=== PATIENT | female | born 1955 | race African-American/Black ===

== ENCOUNTER 2019-07-20 00:16 | Day surgery (SDC) | payer OTHER, SELFPAY ==
[2019-07-16 14:06] VITALS: BMI 33.1
[2019-07-20 08:38] VITALS: BP 155/61; PULSE 69; RESP 18; TEMP 36.1; O2SAT 98; BMI 34.0
--- NOTE | 2019-07-20 08:58 | WPDGICN ---
Assessment and Plan Additional Plan This is a 63-year-old black female patient seen in evaluation at the request of . Patient presents for colonoscopy patient recently found to have positive cologuard test. She reports that her current weight appetite bowel movements are normal. She denies abdominal pain. She denies blood in her stools. Her bowel habits are regular. She reports that her sister had colon polyps. Current medications include only 1 baby aspirin a day She has allergies to morphine penicillin and sulfa appear Physical exam reveals her to be alert. Vital signs stable. HEENT exam unremarkable. Lungs are clear to auscultation and percussion. Heart is without murmur or extra sounds. Abdominal exam bowel sounds are present soft nontender with no organomegaly Impression 1. Neoplasia screening. Advised because of age and because of positive cologuard test. 2. Positive colguard test. 3. Family history of colon polyps in her sister. Plan is for screening colonoscopy. This report follow separately. GI Consult Note Consult date/time: 07/20/19 08:58 HPI: Khloe Metzger is a 63 year old female [facility] Past Medical History Medical History (Updated 07/20/19 @ 09:01 by Arturo Rodriguez MD) Breast cancer Ex-smoker Obesity Social History Social History Gender identity (if verbalized by the patient): Female Meds Home Medications and Allergies Home Medications Medication Instructions Recorded Confirmed Type aspirin [Aspir-81] 81 mg PO DAILY 07/16/19 07/16/19 History Allergies Allergy/AdvReac Type Severity Reaction Status Date / Time morphine Allergy Unknown HALLUCINATI Unverified 07/20/19 08:41 ONS Penicillins Allergy Unknown Hives Unverified 07/20/19 08:41 Sulfa (Sulfonamide Allergy Unknown HIVES Unverified 07/20/19 08:41 Antibiotics) Vital Signs Vital Signs - 24 hr 07/20/19 08:38 Temperature 36.1 C L Pulse Rate 69 Respiratory Rate 18 Blood Pressure 155/61 H Pulse Oximetry 98
[2019-07-20] MEDS: LACTATED RINGERS 1,000 ML 150 ML IV CONT (09:01)
--- NOTE | 2019-07-20 09:01 | P.PNAN_ITS ---
Anes - Initial Pre Proc Eval Procedure: Operation Date: 07/20/19 09:30 Proposed Procedures p Colonoscopy - Johny Bermudez MD Date/Time: 07/20/19 09:01 Surgeon: Johny Bermudez MD Pre Op Diagnosis: positive cologuard Patient Data Age: 63 Gender: F Height: 5 ft 7 in Weight: 98.5 kg Last Vital Signs Temp 36.1 C L 07/20/19 08:38 Pulse 69 07/20/19 08:38 Resp 18 07/20/19 08:38 BP 155/61 H 07/20/19 08:38 Pulse Ox 98 07/20/19 08:38 Allergies Allergy/AdvReac Type Severity Reaction Status Date / Time morphine Allergy Unknown HALLUCINATI Unverified 07/20/19 08:41 ONS Penicillins Allergy Unknown Hives Unverified 07/20/19 08:41 Sulfa (Sulfonamide Allergy Unknown HIVES Unverified 07/20/19 08:41 Antibiotics) Home Medications Medication Instructions Recorded Confirmed Type aspirin [Aspir-81] 81 mg PO DAILY 07/16/19 07/16/19 History Patient hx anesthesia problems: none Family hx anesthesia problems: none [facility] Past Medical History Medical History (Updated 07/20/19 @ 09:01 by Arturo Rodriguez MD) Breast cancer Ex-smoker Obesity Social History Social History Gender identity (if verbalized by the patient): Female Anes - Eval Final PreProcedure Day of Procedure 07/20/19 09:01 Patient weight: obese Heart: regular rate and rhythm Lungs: clear to auscultation Airway: Mallampati scale class III and other (dentures) Neurological: alert and oriented Last oral intake: >/= 8 hours ASA classification: III Emergent: no Anesthetic plan: proceed Anesthesia type and monitoring: general GIVS and standard monitoring Informed Consent: The patient's anesthetic plan and its attendant risks and benefits were discussed with the patient/family/POA. Questions were solicited and answers provided to the satisfaction of the patient/family/POA.
[2019-07-20 10:00] VITALS: BP 117/54; PULSE 71; RESP 17; O2SAT 95
[2019-07-20 10:10] VITALS: BP 121/53; PULSE 67; RESP 15; O2SAT 97
[2019-07-20 10:20] VITALS: BP 109/67; PULSE 67; RESP 22; O2SAT 100
== END 2019-07-20 10:36 | disposition home or self-care (01) ==
PROVIDERS: PCP Family Medicine; Visit Provider Internal Medicine Gastroenterology
PROC: 0DJD8ZZ Inspection of Lower Intestinal Tract, Via Natural or Artificial Opening Endoscopic (ICD-10-PCS; CPT 45378; principal; 2019-07-20 09:30)
DX: Z12.11 Encounter for screening for malignant neoplasm of colon (principal); K57.30 Diverticulosis of large intestine without perforation or abscess without bleeding; K64.8 Other hemorrhoids; R19.5 Other fecal abnormalities; Z83.71 Family history of colonic polyps; E66.9 Obesity, unspecified; Z68.34 Body mass index [BMI] 34.0-34.9, adult; Z79.82 Long term (current) use of aspirin; Z85.3 Personal history of malignant neoplasm of breast; Z87.891 Personal history of nicotine dependence; Z88.0 Allergy status to penicillin; Z88.2 Allergy status to sulfonamides; Z88.5 Allergy status to narcotic agent
CPT/HCPCS: 45378; J2704; J7120

== ENCOUNTER 2019-09-03 20:11 | Emergency (ER) | payer OTHER, SELFPAY ==
[2019-09-03 20:15] VITALS: BP 212/75; PULSE 71; RESP 18; TEMP 36.7; O2SAT 99
[2019-09-03 20:40] VITALS: BP 180/86; PULSE 68; RESP 19; O2SAT 100
--- NOTE | 2019-09-03 20:49 | ED.ALLEREA ---
HPI - Allergic Reaction General Chief complaint: Allergic Reaction Stated complaint: allergic rxn Time Seen by Provider: 09/03/19 20:37 Source: patient and family Mode of arrival: ambulatory Limitations: no limitations History of Present Illness MD complaint: allergic reaction Onset (ago): hour(s) Exposure: other Known history of allergy to: known allergy to morphine and penicillin and sulfa. Today she had a Bit of Honey candy and she thinks it might be that. Her tongue was more swollen at home. She took benadryl 25mg at home. She has not had allergy testing before. She works at home care, and is still working. She denies taking any lisinopril, ibuprofen, or naproxen. Symptoms: tongue swelling Severity: moderate Treatment prior to arrival: benadryl Previous Allergic Reaction History: other Related Data Home Medications Medication Instructions Recorded Confirmed aspirin [Aspir-81] 81 mg PO DAILY 07/16/19 07/16/19 Allergies Allergy/AdvReac Type Severity Reaction Status Date / Time morphine Allergy Unknown HALLUCINATI Unverified 07/20/19 08:41 ONS Penicillins Allergy Unknown Hives Unverified 07/20/19 08:41 Sulfa (Sulfonamide Allergy Unknown HIVES Unverified 07/20/19 08:41 Antibiotics) Review of Systems Review of Systems: All systems reviewed & are unremarkable except as noted in HPI and below Constitutional: Constitutional: Reports no additional constitutional complaints Eyes: Eyes: Reports no additional eye complaints ENT: Denies dysphagia Cardiovascular: Cardiovascular: Reports no additional cardiovascular complaints Respiratory: Respiratory: Reports no additional respiratory complaints Gastrointestinal: Gastrointestinal: Reports no additional gastrointestinal complaints [facility] Past Medical History Medical History (Updated 09/03/19 @ 22:10 by Andree Verduzco MD) Breast cancer Ex-smoker Obesity Surgical History Surgical History (Updated 09/03/19 @ 22:22 by Andree Verduzco MD) History of lumpectomy Social History Social History (Updated 09/03/19 @ 22:22 by Andree Verduzco MD) Smoking status: Never smoker Alcohol intake: never Substance use: never Gender identity (if verbalized by the patient): Female Exam Const: General: healthy appearing, no acute distress and alert Nutritional Appearance: well nourished and obese Orientation/consciousness: patient oriented x3 HENMT: Face and sinus: normal facial exam Mouth: Yes moist mucous membranes Other: the tongue is moderately swollen,mostly in the front. Eyes: Conjunctivae: conjunctivae normal Pupils: Equal, round and reactive pupils present EOM: EOMs intact bilaterally Neck: Neck: normal visual inspection and no lymphadenopathy Chest: Chest palpation & inspection: normal inspection of the chest Resp: Effort & Inspection: normal respiratory effort Auscultation: clear to auscultation bilaterally Cardio: Rate: regular rate Rhythm: regular rhythm GI: GI Palp: Yes Soft to palpation Skin: General skin exam: normal color Rashes: no rashes Neuro: General: patient oriented x3, no focal motor deficits and CN's II-XI intact bilaterally Speech: normal speech Extrem: General: normal to inspection Psych: Appearance: well kempt Affect: normal affect Attitude: cooperative Course Reevaluation(s) Reevaluation #1: She says that her tongue is better and she wants to go home and eat. Date: 09/03/19 Time: 22:24 Vital Signs Vital signs: Vital Signs Temperature 98.1 F 09/03/19 20:15 Pulse Rate 71 09/03/19 20:15 Respiratory Rate 18 09/03/19 20:15 Blood Pressure 212/75 H 09/03/19 20:15 Pulse Oximetry 99 09/03/19 20:15 Temperature 98.1 F 09/03/19 20:15 Pulse Rate 68 09/03/19 20:40 Respiratory Rate 19 09/03/19 20:40 Blood Pressure 180/86 H 09/03/19 20:40 Pulse Oximetry 100 09/03/19 20:40 Discharge Plan Discharge Clinical Impression: Angioedema Qualifiers: Encounter type: initial
[2019-09-03] MEDS: FAMOTIDINE 20 MG/2 ML VIAL IV PUSH (21:50)
[2019-09-03] MEDS: methylPREDNISolone SOD SUCC 125 MG VIAL IV PUSH (21:50)
[2019-09-03 22:00] VITALS: BP 176/73; PULSE 71; RESP 20; O2SAT 98
== END 2019-09-03 22:00 | disposition home or self-care (01) ==
PROVIDERS: Emergency Provider Emergency Medicine; PCP Family Medicine
DX: T78.3XXA Angioneurotic edema, initial encounter (principal); Z85.3 Personal history of malignant neoplasm of breast; E66.9 Obesity, unspecified
CPT/HCPCS: 96374; 96375; 99284; J1200; J2930

== ENCOUNTER 2020-03-25 13:26 | Outpatient (CLI) | payer OTHER, SELFPAY ==
--- NOTE | ~2020-03-25 | MM_ITS ---
EXAMINATION: MM diagnostic ojhn BI w esperanza HISTORY: Follow-up right breast calcifications and architectural distortion. TECHNIQUE: Additional 3-D tomosynthesis images of the breasts were performed and synthetic 2-D images were generated. CAD analysis was submitted and interpreted. COMPARISON: Comparison to multiple prior studies sequentially, with oldest reviewed study dated 04/22. BREAST PARENCHYMAL COMPOSITION: Breast composed of scattered areas of fibroglandular density. FINDINGS: The left breast is stable without evidence for malignancy. There are coarse amorphous regio nal calcifications in the upper outer quadrant of the right breast which appear to have increased sli ghtly in number and density compared with prior examinations. Given the history of previous malignanc y, stereotactic biopsy is recommended. IMPRESSION: 1. Increase number and density of amorphous regional calcifications upper outer quadrant of the right breast. 2. Stereotactic right breast biopsy recommended. BI-RADS category 4, suspicious findings. Reviewed, dictated and finalized at location A. [employer]
== END 2020-03-25 13:27 | disposition home or self-care (01) ==
PROVIDERS: PCP Family Medicine; Visit Provider Family Medicine
DX: R92.8 Other abnormal and inconclusive findings on diagnostic imaging of breast (principal)
CPT/HCPCS: 77062; 77066; G0279

== ENCOUNTER 2020-11-28 13:26 | Outpatient (CLI) | payer OTHER, SELFPAY ==
--- NOTE | ~2020-11-28 | MM_ITS ---
EXAMINATION: MM diagnostic john RT w esperanza HISTORY: Six-month follow-up for probably benign right breast calcifications TECHNIQUE: Craniocaudal, mediolateral, and mediolateral oblique 3-D tomosynthesis images of the right breast were performed and synthetic 2-D images were generated. Magnification views are also obtained . CAD analysis was submitted and interpreted. COMPARISON: 03/25/2020,03/09/2019, 06/08/2018, 05/18/2018 BREAST PARENCHYMAL COMPOSITION: The breasts are heterogeneously dense, which may obscure small masses . FINDINGS: There are changes of lumpectomy in the right breast including architectural distortion, fat necrosis, and skin retraction. There are stable coarse heterogeneous calcifications in the posterior third of the outer breast at the 9:00 location 7 cm from the nipple which have been morphology consi stent with fat necrosis and postsurgical change. IMPRESSION: 1. Postsurgical changes without mammographic evidence of malignancy. 2. Recommend routine screening mammography, due in six months. BI-RADS Category 2: Benign finding(s). Reviewed, dictated and finalized at location A.
== END 2020-11-28 13:27 | disposition home or self-care (01) ==
LOC: ANHIMG 13:27
PROVIDERS: PCP Family Medicine; Visit Provider Family Medicine
DX: R92.8 Other abnormal and inconclusive findings on diagnostic imaging of breast (principal)
CPT/HCPCS: 77061; 77065; G0279

== ENCOUNTER 2021-02-02 11:13 | Outpatient (CLI) | payer OTHER, SELFPAY ==
--- NOTE | ~2021-02-02 | MMUS_ITS ---
EXAMINATION: MM diagnostic john BI w esperanza, US breast RT complete HISTORY: Follow-up right breast asymmetry TECHNIQUE: Additional 3-D tomosynthesis images of the right breast were performed and synthetic 2-D i mages were generated. CAD analysis was submitted and interpreted. High resolution right breast ultras ound was performed. COMPARISON: Comparison to multiple prior studies sequentially, with oldest reviewed study dated 04/23. BREAST PARENCHYMAL COMPOSITION: Breast composed of scattered areas of fibroglandular density FINDINGS: MAMMOGRAPHIC FINDINGS: The left breast is stable without evidence for malignancy. There is developing asymmetry and architec tural distortion centered in the mid outer aspect of the right breast. Pleomorphic right breast calci fications are not significantly changed dating back to 05/18/2018 ULTRASOUND: Right breast ultrasound: At 12:00, 2 cm from the nipple, there is an irregular hypoechoic mass with posterior shadowing measur ing 12 x 11 x 6 mm. At 11:00 near the nipple is an irregular shaped hypoechoic mass measuring 1.6 x 1 .6 x 0.8 cm. No significant internal vascularity. Mixed posterior attenuation. Parallel orientation. At 8:00, 6 cm from the nipple, there is an irregular shaped slightly hypoechoic heterogeneous mass me asuring 1.5 x 1.5 x 0.8 cm without internal vascularity or significant posterior features. Also at 8: 00, 6 cm from the nipple there is a complex partially cystic mass measuring 1.7 x 1.0 x 1.6 cm. IMPRESSION: 1. Multiple irregular complex masses of the right breast located at 8, 11 and 12:00 positions. 2. Ultrasound-guided breast biopsy of 4 discrete right breast masses recommended. BI-RADS category 4, suspicious findings. Reviewed, dictated and finalized at location A. IMPRESSION: 1. Multiple irregular complex masses of the right breast located at 8, 11 and 1 2:00 positions. 2. Ultrasound-guided breast biopsy of 4 discrete right breast masses recommende d. BI-RADS category 4, suspicious findings.
== END 2021-02-02 11:14 | disposition home or self-care (01) ==
LOC: ANHIMG 11:14
PROVIDERS: PCP Family Medicine; Visit Provider Family Medicine
DX: N63.15 Unspecified lump in the right breast, overlapping quadrants (principal)
CPT/HCPCS: 76641; 77062; 77066; G0279

== ENCOUNTER 2021-03-09 09:29 | Outpatient (CLI) | payer OTHER, SELFPAY ==
--- NOTE | ~2021-03-09 | MMUS_ITS ---
EXAMINATION: US GUIDED NEEDLE BIOPSY DATE: 03/09/2021 11:49 CDT INDICATION: 12:00 right breast hypoechoic lesion TECHNIQUE AND FINDINGS: Initial imaging reveals a likely benign complex parallel area at 8:00 6 cm from the nipple, measuring up to almost 1 centimeter maximal depth and 3.5 cm width, with through transmission posterior enhanc ement, likely benign, likely postoperative seroma/hematoma. Six-month follow-up ultrasound examinatio n is recommended. No reproducible suspicious mass is noted at 11:00 position on the current examination. Ultrasound guided biopsy was performed at 12:00 2 cm from the nipple at an area of hypoechogenicity a nd some posterior shadowing and adjacent calcification: The risks and potential benefits of the procedure were discussed with the patient, and written inform ed consent was obtained. Timeout procedure was performed. After sterile preparation of the right cristine st, 1% lidocaine was utilized for local anesthesia. A 14G spring-loaded biopsy gun needle was advanced to the edge of the region of interest from a media l approach utilizing sonographic guidance. A total of 4 tissue core samples were obtained through th e lesion. An Inrad tissue marker clip was then placed at the biopsy site. Hemostasis was achieved. A sterile bandage was applied. The patient tolerated procedure well and there was no evidence of immediate complication. The patien t was given verbal instructions prior to departing from the department. A two view mammogram was perf ormed to document tissue marker clip placement. The tissue samples were submitted to surgical patholo gy for histologic analysis. IMPRESSION: 1. Successful ultrasound guided biopsy of 12:00 breast mass with biopsy marker placement. Please ref er to pathology report for histologic analysis. BI-RADS Category 3: Probably benign: Recommend 6 month follow-up right breast ultrasound examination Reviewed, dictated and finalized at Location A. Reviewed, dictated and finalized at location A. IMPRESSION: 1. Successful ultrasound guided biopsy of 12:00 breast mass with biopsy marker placement. Please refer to pathology report for histologic analysis. BI-RADS Category 3: Probably benign: Recommend 6 month follow-up right breast u ltrasound examination
== END 2021-03-09 09:30 | disposition home or self-care (01) ==
PROVIDERS: PCP Family Medicine; Visit Provider Family Medicine
DX: R92.8 Other abnormal and inconclusive findings on diagnostic imaging of breast (principal)
CPT/HCPCS: 19083; 88305; A4648

== ENCOUNTER 2021-11-16 13:11 | Outpatient (CLI) | payer OTHER, SELFPAY ==
--- NOTE | ~2021-11-16 | MMUS_ITS ---
EXAMINATION: MM diagnostic john RT w esperanza, US breast RT limited HISTORY: Status post right partial mastectomy and breast reduction surgery. TECHNIQUE: Additional 3-D tomosynthesis images of the right breast were performed and synthetic 2-D i mages were generated. CAD analysis was submitted and interpreted. High resolution Limited right breas t ultrasound was performed. COMPARISON: Comparison to multiple prior studies sequentially, with oldest reviewed study dated 02/20. BREAST PARENCHYMAL COMPOSITION: The breasts are heterogenously dense, which may obscure small masses. FINDINGS: MAMMOGRAPHIC FINDINGS: Stable architectural distortion centered in the upper outer quadrant of the right breast. No signific ant change to clustered indeterminate calcifications of the right breast. There is a new focal asymme try medially in the right breast on CC view only with irregular margins. ULTRASOUND: Limited right breast ultrasound: There are complex masses in the right breast at 8:00, including a ma ss at 8:00, 6 cm from the nipple in the area of palpable concern measuring 1.8 x 1.4 x 1.7 cm which a ppears partially cystic and partially solid with mixed posterior attenuation and no internal vascular ity. Also at 8:00, 6 cm from the nipple in the area of palpable concern is a complex heterogeneous hy poechoic mass with irregular margins. These likely represent areas of fat necrosis without interval c hange from prior examination. Ultrasound examination did not include the area of abnormality in the m edial aspect of the right breast. IMPRESSION: 1. Stable likely benign areas of fat necrosis in the right breast described above. New area of asymmetry medially in the right breast with irregular margins. 2. Ultrasound examination of the medial aspect of the right breast recommended. BI-RADS Category 0: Incomplete: Needs additional imaging evaluation. Reviewed, dictated and finalized at location A. IMPRESSION: 1. Stable likely benign areas of fat necrosis in the right breast described abo ve. New area of asymmetry medially in the right breast with irregular margins. 2. Ultrasound examination of the medial aspect of the right breast recommended. BI-RADS Category 0: Incomplete: Needs additional imaging evaluation.
--- NOTE | ~2021-11-16 | US_ITS ---
Additional imaging US 11/17/2021 10:19 Indication: Focal asymmetry seen in the upper inner quadrant of the right breast anteriorly on mammog wallace. Procedure: High-resolution Limited ultrasound of the right breast Comparison: Comparison to multiple prior studies sequentially, with oldest reviewed study dated 01/2021. Findings: At 2:00 there is scarring from previous surgery with heterogeneous subcutaneous edema. No d iscrete mass or cyst is identified. These are likely benign postsurgical changes. Impression: 1: Probable benign postsurgical changes of the right breast at 2:00 in the area of previous surgical scar. BI-RADS CATEGORY 3-PROBABLY BENIGN FINDING RECOMMENDATION: Six-month follow-up diagnostic right mammogram with possible ultrasound recommended. Reviewed, dictated and finalized at location A. Impression: 1: Probable benign postsurgical changes of the right breast at 2:00 in the area of previous surgical scar. BI-RADS CATEGORY 3-PROBABLY BENIGN FINDING RECOMMENDATION: Six-month follow-up diagnostic right mammogram with possible ul trasound recommended.
== END 2021-11-16 13:12 | disposition home or self-care (01) ==
PROVIDERS: PCP Family Medicine; Visit Provider Family Medicine
DX: N63.10 Unspecified lump in the right breast, unspecified quadrant (principal); R92.8 Other abnormal and inconclusive findings on diagnostic imaging of breast
CPT/HCPCS: 76642; 77061; 77065; G0279

== ENCOUNTER 2022-09-15 12:21 | Outpatient (CLI) | payer BC, SELFPAY ==
--- NOTE | ~2022-09-15 | MMUS_ITS ---
EXAMINATION: MM diagnostic john BI w esperanza, US breast RT complete HISTORY: History of right breast cancer TECHNIQUE: Bilateral full-field ML, MLO and CC and spot right MLO, MLO and CC 3-D tomosynthesis image s were performed and synthetic 2-D images were generated. CAD analysis was submitted and interpreted. High resolution complete right breast ultrasound was performed. COMPARISON: Serial mammographic and sonographic examinations dating back to 05/18/2018 BREAST PARENCHYMAL COMPOSITION: The breasts are heterogeneously dense, which may obscure small masses . FINDINGS: MAMMOGRAPHIC FINDINGS: Right breast: Stable right partial mastectomy postoperative changes and probable scarring, with benig n calcifications likely due in large part due to fat necrosis. There is a biopsy marker. No significant new or developing density or other significant change is noted since 11/16/2021. Left breast: No suspicious mass, architectural distortion, malignant calcification, skin thickening o r retraction or significant new or developing density. There are a few stable benign-appearing microc alcifications. ULTRASOUND: Complete right breast ultrasound examination reveals some shadowing from scarring at 12:00 near the n ipple and chronic complex approximately 11 x 19 mm lesion without internal vascularity, with some thr ough transmission 8 8:00 6 cm from the nipple. No interval suspicious mass or shadowing is detected. IMPRESSION: 1. Probably benign findings. Status post right partial mastectomy for breast cancer, with stable appe arance since 11/16/2021 2. 6 month follow-up diagnostic right mammogram and right breast ultrasound examination are recommend ed BI-RADS category 3, probably benign findings. Reviewed, dictated and finalized at location A. IMPRESSION: 1. Probably benign findings. Status post right partial mastectomy for breast ca ncer, with stable appearance since 11/16/2021 2. 6 month follow-up diagnostic right mammogram and right breast ultrasound exa mination are recommended BI-RADS category 3, probably benign findings.
== END 2022-09-15 12:22 | disposition home or self-care (01) ==
LOC: ANHIMG 12:23
PROVIDERS: PCP Family Medicine; Visit Provider Family Medicine
DX: R92.8 Other abnormal and inconclusive findings on diagnostic imaging of breast (principal); Z85.3 Personal history of malignant neoplasm of breast; Z90.11 Acquired absence of right breast and nipple
CPT/HCPCS: 76641; 77062; 77066; G0279

== ENCOUNTER 2023-10-07 10:15 | Outpatient (CLI) | payer MEDICARE, SELFPAY ==
--- NOTE | ~2023-10-07 | DEXA_ITS ---
Bone Density Report Name: KAY MONIQUE Age: 67 Sex: Female Ethnicity: White Date of : 1955 Indication: postmenopausal; screening for osteoporosis; height loss; cancer; Referring Provider: DESTIN, MIHAI Uribe Study: Bone densitometry was performed. Exam Date: October 07, 2023 Accession number: [id number] Bone Density: Region BMD T-score Z-score Classification AP Spine(L1-L4) 1.136 0.8 2.6 Normal Femoral Neck (Left) 0.871 0.2 1.8 Normal Total Hip (Left) 1.134 1.6 2.8 Normal Femoral Neck (Right) 0.808 -0.4 1.2 Normal Total Hip (Right) 1.171 1.9 3.2 Normal Total Hip Mean 1.153 1.8 3.0 Normal World Health Organization criteria for BMD impression classify patients as: Normal (T-score at or above -1.0), Osteopenia (T-score between -1.0 and -2.5), or Osteoporosis (T-score at or below -2.5). 10-year Fracture Risk: FRAX not reported because: All T-scores for Spine Total, Hip Total, Femoral Neck at or above -1.0 Clinical Information Provided by Patient: Has the following medical conditions: Cancer Patient maximum height was 67 No regular weight bearing exercise Drinks caffeinated beverages Onset of menses at age 15 Number of children 2 Impression: The patient has normal bone mass. Discussion: BONE DENSITY IS ABOVE THE MINIMUM DESIRABLE LEVEL AT ALL SKELETAL SITES TESTED. This patient?s bone mineral density is above the minimum desirable level (T-score -1.0 or better) at all sites measured. The patient should follow a healthful lifestyle (good nutrition with adequate calcium and vitamin D, and appropriate weight-bearing exercise). Follow-Up: Consider repeating this study in 5 years or sooner if there is some new clinical indication. Reported by: CHEMA on 10/07/2023 10:47:00 AM. Reviewed, dictated and finalized at location AEdgardo [facility]
== END 2023-10-07 10:16 | disposition home or self-care (01) ==
PROVIDERS: PCP Physician Assistant; Visit Provider Physician Assistant
DX: Z78.0 Asymptomatic menopausal state (principal)
CPT/HCPCS: 77080

== ENCOUNTER 2023-10-13 14:28 | Outpatient (CLI) | payer MEDICARE, SELFPAY ==
--- NOTE | ~2023-10-13 | MM_ITS ---
EXAMINATION: MM screening john BI w esperanza HISTORY: Screening TECHNIQUE: Craniocaudal and mediolateral oblique 3-D tomosynthesis images were obtained and synthetic 2-D images were generated. CAD analysis was submitted and interpreted. COMPARISON: Comparison to multiple prior studies sequentially, with oldest reviewed study dated 07/2019. BREAST PARENCHYMAL COMPOSITION: Dense: The breasts are heterogeneously dense, which may obscure small masses FINDINGS: There is no evidence of suspicious mass, calcification, or architectural distortion to sugg est malignancy in either breast. There has been no suspicious interval change. IMPRESSION: 1. No mammographic evidence of malignancy. 2. Recommend routine screening mammography in one year. BI-RADS Category 1: Negative Reviewed, dictated and finalized at location A.
== END 2023-10-13 14:29 | disposition home or self-care (01) ==
PROVIDERS: PCP Physician Assistant; Visit Provider Physician Assistant
DX: Z12.31 Encounter for screening mammogram for malignant neoplasm of breast (principal)
CPT/HCPCS: 77063; 77067

== ENCOUNTER → 2023-11-10 12:52 | Outpatient (REF) | payer MEDICARE, SELFPAY | LOC: ANHLAB 12:52 | PROVIDERS: PCP Physician Assistant; Visit Provider Plastic Surgery | DX: L72.3 Sebaceous cyst (principal) | CPT/HCPCS: 88305 ==

== ENCOUNTER 2024-09-17 12:23 | Outpatient (CLI) | payer MEDICARE, SELFPAY ==
--- NOTE | ~2024-09-17 | MMUS_ITS ---
EXAMINATION: MM diagnostic john BI w esperanza, US breast RT limited HISTORY: Right breast lump, prior right partial mastectomy and chemoradiation. Prior bilateral reduct ion surgery. TECHNIQUE: 3-D tomosynthesis images of the breasts were performed and synthetic 2-D images were gener ated. CAD analysis was submitted and interpreted. High resolution limited right breast ultrasound was performed. COMPARISON: 10/13/2023, 09/15/2022, 11/16/2021 BREAST PARENCHYMAL COMPOSITION:Dense: The breasts are heterogeneously dense, which may obscure small masses. FINDINGS: MAMMOGRAPHIC FINDINGS: Stable extensive architectural distortion in the right breast related to prior surgery as well as nikki motherapy/radiation. There are increasing dystrophic calcifications at the lumpectomy site, but no ov ertly suspicious calcifications are present. Stable parenchymal pattern of the left breast. ULTRASOUND: At the right breast 8:00 position, 4 cm from the nipple, there is a 1.5 x 1.3 x 0.8 cm benign cyst. T here is a somewhat masslike area at this region as well measuring 3.8 x 1.9 x 4.8 cm, thought to repr esent normal fibroglandular tissue overall. IMPRESSION: Findings most compatible benign findings, as above. Somewhat masslike area in the right breast is fe lt to most likely represent normal fibroglandular tissue with mild architectural distortion related t o postoperative change especially given stable mammographic appearance of such a large finding. Six-m onth follow-up ultrasound recommended to reassess. BI-RADS category 3, probably benign findings. Reviewed, dictated and finalized at location M. IMPRESSION: Findings most compatible benign findings, as above. Somewhat masslike area in the right breast is felt to most likely represent normal fibroglandular tissue with mild architectural distortion related to postoperative change especially g iven stable mammographic appearance of such a large finding. Six-month follow-u p ultrasound recommended to reassess. BI-RADS category 3, probably benign findings.
--- OUTSIDE RECORDS SUMMARY | 2024-09-17 14:03 | XMS_ITS | Encounter Summary ---
Author Organization [facility] Address 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 Gender Identity Not on file Sexual Orientation Not on file documented as of this encounter Plan of Treatment Not on file documented as of this encounter Procedures Procedure Name Priority Date/Time Associated Diagnosis Comments MAMMO DIAGNOSTIC UNI RIGHT W OR WO CAD Timed Study 09/11/2008 4:03 PM CDT MRI NEEDLE BIOPSY Timed Study 09/11/2008 3:4 9 PM CDT documented in this encounter Results * MAMMO DIGITAL DIAG UNI RIGHT (09/11/2008 4:03 PM CDT) Anatomical Region Laterality Modality Breast Right Other 09/11/2008 4:03 PM CDT Narrative 09/12/2008 12:29 PM CDT [facility] [address] [place], [place] [address] Admit Date: 09/11/2008 KHLOE METZGER Sex: F Admit Prov: CHUNG VANN II Date: 1955 Primary Care Prov: PCP, NONE CMRN: [id number] Room: [facility] SSN: [id number] IMAGING SERVICES Ordering Prov: CHUNG VANN II Accession Number: [id number] Interpretation RIGHT BREAST MRI GUIDED NEEDLE LOCALIZATION WITH TISSUE MARKER PLACEMENT AND [facility] BREAST FULL FIELD DIGITAL DIAGNOSTIC MAMMOGRAM WITH COMPUTER AIDED DETECTION. 09/11/2008 History: Patient has been diagnosed with right breast cancer. A recent MRI performed at this institution demonstrated a mass in the medial aspect of the right breast. An MRI guided core biopsy has been recommended. Technique: The risks and benefits were discussed of the procedure were discussed at length with the patient. Patient had an opportunity to ask questions, all of which were answered. The patient then gave written informed consent for a right breast MRI guided core biopsy with tissue marker placement. The patient was placed in the prone position on the MRI table. The right breast was placed in grid compression device from the lateral approach. A sagittally acquired breast MRI was performed before and after the intravenous administration of 16 mL of Optimark. Lesion was identified on the scan. This area was then prepped in the usual sterile fashion. Using 1% lidocaine without epinephrine, the area was anesthetized. A trocar was then inserted to the level of the lesion. Axial acquisition MRI scan was obtained and demonstrated confirmation of the trocar in the appropriate position. Twelve 9 gauge vacuum-assisted core biopsies were obtained. Tissue marker clip was placed. An axial acquisition was then performed and demonstrated the biopsy tissue marker clip to be in the appropriate position. Patient tolerated procedure well and there were no immediate complications. The patient was transported to the breast center. A right breast full field digital diagnostic mammogram was performed. This demonstrated the patient's tissue marker clip to be in the appropriate position. A sterile bandage was placed over the incision site. The patient was discharged from the department in stable condition after being given verbal as well as written postprocedure instructions. The specimens were submitted to pathology in formalin for histologic analysis. IMPRESSION: Technically successful right breast MRI-guided core biopsy. Radiologists: Dr. Riddhi Corona and Dr. Patricia Sanchez Assessment BIRADS: Post procedure mammograms for marker placement Recommendation: No recommendation required Dictated by: VALARIE CORONA Electronically signed by: VALARIE CORONA 09/12/2008 12:28 Transcribed: 09/12/2008 10:20 AMK Procedure Note Valarie Corona - 09/12/[address] [place], [place] [address] Admit Date: 09/11/2008 KHLOE METZGER Sex: F Admit Prov: CHUNG VANN II Date: 1955 Primary Care Prov: PCP, NONE CMRN: [id number] Room: [facility] SSN: [id number] IMAGING SERVICES Ordering Prov: CHUNG VANN II Interpretation RIGHT BREAST MRI GUIDED NEEDLE LOCALIZATION WITH TISSUE MARKERPLACEMENT AND RIGH BREAST FULL FIELD DIGITAL DIAGNOSTIC MAMMOGRAM WITH COMPUTERAIDED DETECTION. 09/11/2008 History: Patient has been diagnosed with right breast cancer. Arecent MRI performed at this institution demonstrated a mass in the medialaspect of the right breast. An MRI guided core biopsy has been recommended. Technique: The risks and benefits were discussed of the procedurewere discussed at length with the patient. Patient had an opportunity toask questions, all of which were answered. The patient then gavewritten informed consent for a right breast MRI guided core biopsy withtissue marker placement. The patient was placed in the prone position on the MRI table. Theright breast was placed in grid compression device from the lateralapproach. A sagittally acquired breast MRI was performed before and after the intravenous administration of 16 mL of Optimark. Lesion wasidentified on the scan. This area was then prepped in the usual sterile fashion.Using 1% lidocaine without epinephrine, the area was anesthetized. A trocarwas then inserted to the level of the lesion. Axial acquisition MRI scan was obtained and demonstrated confirmation of the trocar in theappropriate position. Twelve 9 gauge vacuum-assisted core biopsies wereobtained. Tissue marker clip was placed. An axial acquisition was thenperformed and demonstrated the biopsy tissue marker clip to be in the appropriate position. Patient tolerated procedure well and there were noimmediate complications. The patient was transported to the breast center. A right breast fullfield digital diagnostic mammogram was performed. This demonstrated thepatient's tissue marker clip to be in the appropriate position. A sterile bandage was placed over the incision site. The patientwas discharged from the department in stable condition after being givenverbal as well as written postprocedure instructions. The specimens weresubmitted to pathology in formalin for histologic analysis. IMPRESSION: Technically successful right breast MRI-guided core biopsy. Radiologists: Dr. Riddhi Corona and Dr. Patricia Sanchez Assessment BIRADS: Post procedure mammograms for marker placement Recommendation: No recommendation required Dictated by: VALARIE CORONA Electronically signed by: VALARIE CORONA 09/12/2008 12:28 Transcribed: 09/12/2008 10:20 AMK Chung Vann MD MAMMO ORDERABLES Final Result * MRI NEEDLE BIOPSY (09/11/2008 3:49 PM CDT) Anatomical Region Laterality Modality Other 09/11/2008 3:49 PM CDT Narrative 09/13/2008 5:19 PM CDT [facility] [address] [place], [place] [address] Admit Date: 09/11/2008 KHLOE METZGER Sex: F Admit Prov: CHUNG VANN II Date: 1955 Primary Care Prov: PCP, NONE CMRN: [id number] Room: [facility] SSN: [id number] IMAGING SERVICES Ordering Prov: CHUNG VANN II Accession Number: [id number] Addendum Addendum: The pathology from the patient's recent right breast MRI guided core biopsy reveals no pathologic diagnosis. This is benign and discordant. It is recommended the patient have a needle localization at the level of the clip in the medial aspect of the right breast. The patient will be informed of the above findings by the nurse navigator in the breast center. Dictated by: VALARIE CORONA Electronically signed by: VALARIE CORONA 09/13/2008 17:17 Transcribed: 09/13/2008 15:51 AMK Interpretation RIGHT BREAST MRI GUIDED NEEDLE LOCALIZATION WITH TISSUE MARKER PLACEMENT AND RIG BREAST FULL FIELD DIGITAL DIAGNOSTIC MAMMOGRAM WITH COMPUTER AIDED DETECTION. 09/11/2008 History: Patient has been diagnosed with right breast cancer. A recent MRI performed at this institution demonstrated a mass in the medial aspect of the right breast. An MRI guided core biopsy has been recommended. Technique: The risks and benefits were discussed of the procedure were discussed at length with the patient. Patient had an opportunity to ask questions, all of which were answered. The patient then gave written informed consent for a right breast MRI guided core biopsy with tissue marker placement. The patient was placed in the prone position on the MRI table. The right breast was placed in grid compression device from the lateral approach. A sagittally acquired breast MRI was performed before and after the intravenous administration of 16 mL of Optimark. Lesion was identified on the scan. This area was then prepped in the usual sterile fashion. Using 1% lidocaine without epinephrine, the area was anesthetized. A trocar was then inserted to the level of the lesion. Axial acquisition MRI scan was obtained and demonstrated confirmation of the trocar in the appropriate position. Twelve 9 gauge vacuum-assisted core biopsies were obtained. Tissue marker clip was placed. An axial acquisition was then performed and demonstrated the biopsy tissue marker clip to be in the appropriate position. Patient tolerated procedure well and there were no immediate complications. The patient was transported to the breast center. A right breast full field digital diagnostic mammogram was performed. This demonstrated the patient's tissue marker clip to be in the appropriate position. A sterile bandage was placed over the incision site. The patient was discharged from the department in stable condition after being given verbal as well as written postprocedure instructions. The specimens were submitted to pathology in formalin for histologic analysis. IMPRESSION: Technically successful right breast MRI-guided core biopsy. Radiologists: Dr. Riddhi Corona and Dr. Patricia Sanchez Report revised on 09/13/2008 5:17:45 PM by VALARIE CORONA Dictated by: VALARIE CORONA Electronically signed by: VALARIE CORONA 09/12/2008 12:28 Transcribed: 09/12/2008 10:20 AMK Procedure Note Valarie Corona - 09/13/2008 [facility] [address] [place], [place] [address] Admit Date: 09/11/2008 KHLOE METZGER Sex: F Admit Prov: CHUNG VANN II Date: 1955 Primary Care Prov: PCP, NONE CMRN: [id number] [facility]: [id number] IMAGING SERVICES Ordering Prov: GENE CHUNG DUKES Addendum Addendum: The pathology from the patient's recent right breast MRIguided core biopsy reveals no pathologic diagnosis. This is benign anddiscordant. It is recommended the patient have a needle localization at the levelof the clip in the medial aspect of the right breast. The patient willbe informed of the above findings by the nurse navigator in the breastcenter. Dictated by: VALARIE CORONA Electronically signed by: VALARIE CORONA 09/13/2008 17:17 Transcribed: 09/13/2008 15:51 AMK Interpretation RIGHT BREAST MRI GUIDED NEEDLE LOCALIZATION WITH TISSUE MARKERPLACEMENT AND RIG BREAST FULL FIELD DIGITAL DIAGNOSTIC MAMMOGRAM WITH COMPUTERAIDED DETECTION. 09/11/2008 History: Patient has been diagnosed with right breast cancer. Arecent MRI performed at this institution demonstrated a mass in the medialaspect of the right breast. An MRI guided core biopsy has been recommended. Technique: The risks and benefits were discussed of the procedurewere discussed at length with the patient. Patient had an opportunity toask questions, all of which were answered. The patient then gavewritten informed consent for a right breast MRI guided core biopsy withtissue marker placement. The patient was placed in the prone position on the MRI table. Theright breast was placed in grid compression device from the lateralapproach. A sagittally acquired breast MRI was performed before and after the intravenous administration of 16 mL of Optimark. Lesion wasidentified on the scan. This area was then prepped in the usual sterile fashion.Using 1% lidocaine without epinephrine, the area was anesthetized. A trocarwas then inserted to the level of the lesion. Axial acquisition MRI scan was obtained and demonstrated confirmation of the trocar in theappropriate position. Twelve 9 gauge vacuum-assisted core biopsies wereobtained. Tissue marker clip was placed. An axial acquisition was thenperformed and demonstrated the biopsy tissue marker clip to be in the appropriate position. Patient tolerated procedure well and there were noimmediate complications. The patient was transported to the breast center. A right breast fullfield digital diagnostic mammogram was performed. This demonstrated thepatient's tissue marker clip to be in the appropriate position. A sterile bandage was placed over the incision site. The patientwas discharged from the department in stable condition after being givenverbal as well as written postprocedure instructions. The specimens weresubmitted to pathology in formalin for histologic analysis. IMPRESSION: Technically successful right breast MRI-guided core biopsy. Radiologists: Dr. Riddhi Corona and Dr. Patricia Sanchez Report revised on 09/13/2008 5:17:45 PM by VALARIE CORONA Dictated by: VALARIE CORONA Electronically signed by: VALARIE CORONA 09/12/2008 12:28 Transcribed: 09/12/2008 10:20 AMK Chung Vann MD MR ORDERABLES Edited documented in this encounter Visit Diagnoses Diagnosis Malignant neoplasm of breast (female), unspecified site documented in this encounter
--- OUTSIDE RECORDS SUMMARY | 2024-09-17 14:03 | XMS_ITS | Clinical Summary ---
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 Gender Identity Not on file Sexual Orientation Not on file Plan of Treatment Health Maintenance Due Date Last Done Comments DTAP/TDAP/TD VACCINES (1 - Tdap) 1976 COLORECTAL SCREENING 2002 Colorectal Cancer Screening 2002 FIT-DNA Q 3 years 2002 FIT/FOBT Q 1 year 2002 Flex Sig/CT Colonography Q 5 years 2002 PNEUMOCOCCAL VACCINE 50+ YEARS (1 of 1 - PCV) 11/12/19 08 ZOSTER VACCINE (1 of 2) 11/12/2007 BREAST CANCER SCREENING 09/11/2009 09/11/2008 OSTEOPOROSIS SCREENING 2022 INFLUENZA VACCINE (#1) 2023 RSV VACCINE (60+ or ) (1 - 1-dose 75+ series) 2032 Procedures Procedure Name Priority Date/Time Associated Diagnosis Comments MAMMO DIAGNOSTIC UNI RIGHT W OR WO CAD Timed Study 09/11/2008 4:03 PM CDT from Last 3 Months or Most Recently Relevant to Health Maintenance Results * MAMMO DIGITAL DIAG UNI RIGHT (09/11/2008 4:03 PM CDT) Anatomical Region Laterality Modality Breast Right Other 09/11/2008 4:03 PM CDT Narrative 09/12/2008 12:29 PM CDT [facility] [address] [place], [place] [address] Admit Date: 09/11/2008 KHLOE METZGER Sex: F Admit Prov: CHUNG VANN II Date: 1955 Primary Care Prov: PCP, NONE CMRN: [id number] Room: [facility] SSN: [id number] IMAGING SERVICES Ordering Prov: CHUNG VANN II Accession Number: [id number] Interpretation RIGHT BREAST MRI GUIDED NEEDLE LOCALIZATION WITH TISSUE MARKER PLACEMENT AND [facility] BREAST FULL FIELD DIGITAL DIAGNOSTIC MAMMOGRAM WITH [...] AMK Procedure Note Valarie Corona - 09/12/2008 [facility] [address] [place], [place] [address] Admit Date: 09/11/2008 KHLOE METZGER Sex: F Admit Prov: CHUNG VANN II Date: 1955 Primary Care Prov: PCP, NONE CMRN: [id number] Room: [facility] SSN: [id number] IMAGING SERVICES Ordering Prov: CHUNG VANN II [...] CORONA 09/12/2008 12:28 Transcribed: 09/12/2008 10:20 AMK us Chung Vann MD MAMMO ORDERABLES Final Result from Last 3 Months or Most Recently Relevant to Health Maintenance
--- OUTSIDE RECORDS SUMMARY | 2024-09-17 14:03 | XMS_ITS | Encounter Summary ---
Author Organization [facility] Address 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 Gender Identity Not on file Sexual Orientation Not on file documented as of this encounter Plan of Treatment Not on file documented as of this encounter Procedures Procedure Name Priority Date/Time Associated Diagnosis Comments MRI BREAST W CONTRAST BILAT Timed Study 08/28/2008 2:43 PM CDT POC CREATININE Routine 08/28/2008 1:54 PM CDT documented in this encounter Results * MRI BREAST W CONTRAST BILAT (08/28/2008 2:43 PM CDT) Anatomical Region Laterality Modality Breast Bilateral Other 08/28/2008 2:43 PM CDT Narrative 09/02/2008 4:45 PM CDT [facility] [address] [place], [place] [address] Admit Date: 08/28/2008 KHLOE METZGER Sex: F Admit Prov: CHUNG VANN II Date: 1955 Primary Care Prov: PCP, NONE CMRN: [id number] Room: [facility] SSN: [id number] IMAGING SERVICES Ordering Prov: CHUNG VANN II Accession Number: [id number] Interpretation BILATERAL BREAST MRI WITH INTRAVENOUS CONTRAST, 08/28/2008 HISTORY: The patient has biopsy-proven right breast cancer. TECHNIQUE: Multisequence, multiplanar breast MRI was performed before and after the intravenous administration of 16 mL of OptiMARK. Images were reviewed on the CAD stream workstation. Correlation is made with the patient's previous mammograms from the outside institution. BACKGROUND ENHANCEMENT: Moderate. Reviewing Radiologists: Dr. Riddhi Corona and Dr. Jenny Padilla. FINDINGS: An area of abnormal enhancement is identified at the 12:00 position of the right breast. This measures approximately 3.1 x 1.5 cm in size. This is consistent with the patient's known malignancy in this region. The MRI abnormality extends over a larger segment than would be expected on either the mammograms or the ultrasound. At the 3:00 position of the right breast, a 1.3 x 0.8 cm right breast mass is identified. This does demonstrate abnormal enhancement, including the worst type of enhancement being of the washout type. A second-look ultrasound of this finding is warranted. Besides the background enhancement within the right breast, no other suspicious areas of enhancement are identified within the right breast. No lymphadenopathy or skin thickening is identified. In the left breast, no suspicious enhancing masses are identified. Background enhancement is identified. No lymphadenopathy or skin thickening is seen. Overall Assessment: BI-RADS Category 6: Biopsy-proven malignancy. IMPRESSION: The MRI demonstrates abnormal enhancement at the 12:00 position of the right breast, in the region of the patient's known malignancy. A second area of abnormal enhancement is identified within the right breast at the 3:00 position. This is worrisome for a second focus of malignancy. A second-look ultrasound is recommended. If the area cannot be identified on ultrasound, then consideration should be given to an MRI guided core biospy or MRI guided needle localization. These findings were discussed directly with the physician's nurse, Mare, at 1500 hours on 09/02/2008. These findings were also discussed with Dr. Vann at 1545 hours. Dictated by: VALARIE CORONA Electronically signed by: VALARIE CORONA 09/02/2008 16:43 Transcribed: 09/02/2008 15:17 DKT Procedure Note Valarie Corona - 09/02/2008 [facility] [address] [place], [place] [address] Admit Date: 08/28/2008 KHLOE METZGER Sex: F Admit Prov: CHUNG VANN II Date: 1955 Primary Care Prov: PCP, NONE CMRN: [id number] Room: [facility] SSN: [address] [place] [address] IMAGING SERVICES Ordering Prov: CHUNG VANN II Interpretation BILATERAL BREAST MRI WITH INTRAVENOUS CONTRAST, 08/28/2008 HISTORY: The patient has biopsy-proven right breast cancer. TECHNIQUE: Multisequence, multiplanar breast MRI was performed beforeand after the intravenous administration of 16 mL of OptiMARK. Imageswere reviewed on the CAD stream workstation. Correlation is made withthe patient's previous mammograms from the outside institution. BACKGROUND ENHANCEMENT: Moderate. Reviewing Radiologists: Dr. Riddhi Corona and Dr. Jenny Padilla. FINDINGS: An area of abnormal enhancement is identified at the 12:00 positionof the right breast. This measures approximately 3.1 x 1.5 cm in size. Thisis consistent with the patient's known malignancy in this region. TheMRI abnormality extends over a larger segment than would be expected oneither the mammograms or the ultrasound. At the 3:00 position of the rightbreast, a 1.3 x 0.8 cm right breast mass is identified. This doesdemonstrate abnormal enhancement, including the worst type of enhancement beingof the washout type. A second-look ultrasound of this finding iswarranted. Besides the background enhancement within the right breast, noother suspicious areas of enhancement are identified within the rightbreast. No lymphadenopathy or skin thickening is identified. In the left breast, no suspicious enhancing masses are identified. Background enhancement is identified. No lymphadenopathy or skinthickening is seen. Overall Assessment: BI-RADS Category 6: Biopsy-proven malignancy. IMPRESSION: The MRI demonstrates abnormal enhancement at the 12:00 position ofthe right breast, in the region of the patient's known malignancy. Asecond area of abnormal enhancement is identified within the right breast atthe 3:00 position. This is worrisome for a second focus of malignancy.A second-look ultrasound is recommended. If the area cannot beidentified on ultrasound, then consideration should be given to an MRI guided corebiospy or MRI guided needle localization. These findings were discussed directly with the physician's nurse,Mare, at 1500 hours on 09/02/2008. These findings were also discussed withDr. Vann at 1545 hours. Dictated by: VALARIE CORONA Electronically signed by: VALARIE CORONA 09/02/2008 16:43 Transcribed: 09/02/2008 15:17 DKT us Chung Vann MD MR ORDERABLES Final Result * POC CREATININE (08/28/2008 1:54 PM CDT) CREATININE POC 0.8 0.6 - 1.3 mg/dL [facility] Comment: The calculation for the estimated GFR on the i-STAT POC instrument has been changed to correspond to the IDMS-traceable MDRD Study, upon the recommendation of the police captain of the i-STAT instrument. The change was effective in our laboratory 04/29/2008. The impact of this change to the estimated GFR is minimal. This calculation is used by the main laboratory methodology also. GFR, >60 >=60 mL/min/1.7 sq meter [facility] GFR >60 >=60 mL/min/1.7 sq meter [facility] Capillary blood specimen (specimen) 08/28/2008 1:54 PM CDT 08/28/2008 1:54 PM CDT us Chung Vann MD POINT OF CARE TESTING Edited INTERFACE SYSTEM Refer to clinic/hospital department [facility] CLIA# [id number] [address] [place] [address] documented in this encounter Visit Diagnoses Diagnosis Malignant neoplasm of breast (female), unspecified site documented in this encounter
--- OUTSIDE RECORDS SUMMARY | 2024-09-17 14:03 | XMS_ITS | Encounter Summary ---
Author Organization [facility] Address [address] [place] [address] Care Team Providers Care Manufacturing Quality Engineer Name Role Phone Unavailable Primary Care Provider Unavailabl e Encounter Details Date Type Department Care Team (Late st Contact Info) Description 09/11/2008 Outpatient Historical [facility] Lexi Mcnair MD [address] [place] [address] Social History Tobacco Use Types Packs/Day Years Used Date Smoking Tobacco: Never Assessed Comments Unknown Sex and Gender Information Value Date Recorded Sex Assigned at Not on file Legal Sex Female 5:43 AM ROUND UP RING HAND Gender Identity Not on file Sexual Orientation Not on file documented as of this encounter Plan of Treatment Not on file documented as of this encounter Procedures Procedure Name Priority Date/Time Associated Diagnosis Comments PATHOLOGY Routine 09/11/2008 5:00 PM CDT documented in this encounter Results * PATHOLOGY (09/11/2008 5:00 PM CDT) FINAL REPORT [address] [address] Patient: KHLOE METZGER : 1955 Procedure Date: 09/11/2008 Accession Date: 09/12/2008 Case No: [id number] Ordering Dr: LEXI MCNAIR Case types AW, BW, FW, NW and SH are performed by [facility], [place], [place] SURGICAL PATHOLOGY & NON-GYNECOLOGIC CYTOPATHOLOGY REPORT DIAGNOSIS BREAST, RIGHT, CORE BIOPSIES: - NO PATHOLOGIC DIAGNOSIS. Specimen Description: Right breast mass in formalin at 15:40. Operative Procedure: Right breast MRI-guided biopsy. Patient Information/Histo ry/Diagnosis: History of right breast cancer, enhancing lesion in the inner right breast on MRI. Differential diagnosis: malignancy, benign proliferative changes, infected cyst. Gross: Received in a single container labeled Khloe Metzger, right breast mass is a mesh tube which contains ten cores of fatty tissue measuring 1.5, 1.7, 2.3, 2, 3.4, 3, 3.1, 2, 1.8, and 1.6 cm long and ranging in diameter from 0.2 to 0.4 cm and multiple core fragments ranging from 0.1 to 0.4 cm. The specimen is submitted entirely in A1 through A4. [facility] 09.12.2008 10:39 am Microscopic: The slides are labeled [id number], Khloe Metzger. The biopsy consists of multiple cores of benign breast tissue. No significant proliferative changes, neoplastic infiltrate, or cyst is identified. Histologic features to explain the presence of a mass are not identified. Clinical correlation is recommended. [facility] 09.13.2008 08:55 am Staging Form: No. ELECTRONIC SIGNATURE FOR EMPERATRIZ HARVEY M.D.- 09/13/08 10:37 am INTERFACE SYSTEM 09/11/2008 5:00 PM CDT us Lexi Mcnair MD PATHOLOGY/CYTOLOGY ORDERABLES Final Result INTERFACE SYSTEM Refer to clinic/hospital department documented in this encounter Visit Diagnoses Not on filedocumented in this encounter
--- OUTSIDE RECORDS SUMMARY | 2024-09-17 14:03 | XMS_ITS | Clinical Summary ---
Author Organization [facility] Address [address] [place] [id number] Care Team Providers Care Valet Cashier Name Role Phone Unavailable Primary Care Provider Unavailabl e Social History Tobacco Use Types Packs/Day Years Used Date Smoking Tobacco: Never Assessed Comments Unknown Sex and Gender Information Value Date Recorded Sex Assigned at Not on file Legal Sex Female 8:30 PM CDT Gender Identity Not on file Sexual Orientation Not on file Plan of Treatment Health Maintenance Due Date Last Done Comments Colorectal Cancer Screening Colonoscopy (10 Years) 1955 Hepatitis C 11/12/1975 DTaP, Tdap and Td Vaccines ( 1 - Tdap) 1976 Mammogram Screening 1997 Pneumococcal Vaccine: 50+ Ye ars (1 of 1 - PCV) 11/12/2007 Zoster Vaccines (1 of 2) 11/12/2007 Dexa Scan (General) 2022 COVID-19 Vaccine ( - 2023-2 5 season) 2024 RSV Immunization or 60+ Years (1 - 1-dose 75+ series) 2032 Meningococcal B Vaccine Aged Out No l onger eligible based on patient's age to complete this topic Meningococcal Vaccine Aged Out No derik vane eligible based on patient's age to complete this topic RSV Immunizations Under 20 Months Aged Out No longer eligible based on patient's age to complete this topic
--- OUTSIDE RECORDS SUMMARY | 2024-09-17 14:03 | XMS_ITS | Data Portability ---
Author Organization [facility] ChangeAgain[employer]Me, Main Office Address [address] [place] [address] Assessment No assessment recorded. Plan of Treatment Reminders Order Date Submit Date Provider Last Modified By Organization Details Last Modified Time Details Appointments Physical/ Annual Wellness 30 2024 10:15A PREETI Renner Not available Not available Not available Lab lipid panel, serum 2023 024 [facility] (Lab), [address] [place], [address], 10/05/2023 15:24:36 CK (creatine kinase), total, serum 2023 024 [facility] (Lab), [address] [place], [address], 10/05/2023 15:24:36 CMP, serum or plasma 2023 024 [facility] (Lab), [address] [place], [address], 10/05/2023 15:24:36 CBC w/ auto diff 2023 024 [facility] (Lab), [address] [place], [address], 10/05/2023 15:24:36 T4, free, serum 2023 024 [facility] (Lab), [address] [place], [address], 10/05/2023 15:24:36 TSH, serum or plasma 2023 024 [facility] (Lab), [address] [place], [address], 10/05/2023 15:24:36 glycohemo globin, total, blood 2023 024 [facility] (Lab), [address] [place], [address], 10/05/2023 15:24:35 Referral dermatolo gist referral - boil right buttock for a year . I put her on cipro . Please call patient to schedule an appointme nt. Please eval and treat. Thank you 2023 024 [email or web address] Kendra Herzog MD (Dermatology) , [address], [address] , [place], [address], 10/27/2023 09:15:09 Procedures None recorded. Surgeries None recorded. Imaging DEXA [email or web address] [place] [address] (Imaging), [address] [facility] [address], [address], 10/18/2023 10:03:00 MAMMO, screening , digital, bilateral 2023 024 [facility] (Imaging), [address] [facility] [address] [place] [address], [address], 10/14/2023 15:59:34 MAMMO, diagnosti c, digital, bilateral 2022 023 [facility] (Imaging), [address], [address], 09/16/2022 09:13:22 Medication Orders Ozempic 1 mg/dose (4 mg/3 mL) subcutane ous pen injector 2022 023 [facility] [place] [address] [address] [facility] [place], [address], 07/30/2024 15:57:13 clindamyc in HCl 300 mg capsule [email or web address] [facility], [address] [place], [address], 09/28/2023 09:29:52 fluconazo le 150 mg tablet [address] [facility], [address] [place], [address], 03/08/2023 15:51:30 Ozempic 0.25 mg or 0.5 mg (2 mg/1.5 mL) subcutane ous pen injector 2022 023 [facility], [address] [place], [address], 09/28/2023 09:24:14 Patient TargetsNo targets recorded. Patient Instructions Encounter Date Encounter Id Patient Instructions Last Modified By Organization Details Last Modified Time 09/28/2023 [id number] dementia rating scale-2* Not available 09/28/2023 10:23:36 alcohol misuse* [email or web address] Not availab le 10/16/2023 22:58:29 depression screening* [email or web address] Not available 10/16/2023 22:58:29 multi-dimensiona l health assessment questionnaire* Not available 09/28/2023 10:24:25 [place] Advance Directives Not available 09/28/2023 10:23:31 advance care planning: care instructions Not available 09/28/2023 10:23:31 care plan* Not available 09/27 10:23:35 Personalized [facility] lt Plan and Screening Recommendations Advance Directives - Do you have one? Yes Advance Directives - Do we have your advance directive on file in your health record? Primary Prevention/Interven tion (prevents or decreases the chance of common diseases from occurring) Smoking Risk: Non Smoker Alcohol Misuse Screening: Negative Weight: Appropriate Overwei ght continue your current weight loss efforts try to lose 5% of your body weight try to lose 10% of your body weight Physical activity: Need more exercise/physical activity minimum of 10-20 minutes of activity that causes mild breathlessness/day minimum of 20-30 minutes activity that causes mild breathlessness/day Nutrition: Good Average Fall Risk (screened today): Low Vaccines Pneumococcal: Ordered Recommended today Recommended today, but you have declined No further needed Influenza: Your next one in the fall of this year Chronic Disease Risks Stroke: Low Risk I have no recommendations Heart Attack: Low risk I have no recommendations Clogging of the Arteries: Low risk I have no recommendations Diabetes: Low Risk Intermediate Risk Active diagnosis, Continue current treatment plan Secondary Prevention/Interven tion (detects treatable diseases before they may cause symptoms, disability, or ) Breast Cancer Screening with mammogram: Your next mammogram: Ordered Recommended today Cervical/Uterine/Ov jose Cancer Screening: No screening necessary Osteoporosis Screening: Your next DEXA in: Ordered Recomme nded today Date Screening Last Performed: Colon Cancer Screening: No screening necessary Date Screening Last Performed: Eye Disease Screening: No Eye exam necessary Dementia Risk: Low I have no recommendations Depression Screening: Negative Active diagnosis, Continue current treatment plan Not available 09/28/2023 10:31:58 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 I put her on cipro . Please call patient to schedule an appointment. Please eval and treat. Thank you Referring Physician: Segun Sadler, Family Medicine, Encounter Date: 09/28/2023 Results Created Date Observation Date Name Description Value Unit Range Abnormal Flag Note LastModifiedBy Organization Detail LastModifiedTime 10/31/19 22 11/04/2021 PAP THINP REP W/HPV -HR test ordered: commen t Not Available [facility] (Lab) [address] [place], [address], 11/04/2021 17:24:44 10/31/19 22 11/04/2021 PAP THINP REP W/HPV -HR diagnosis: commen t Not Available [facility] (Lab) [address] [place], [address], 11/04/2021 17:24:44 10/31/19 22 11/04/2021 PAP THINP REP W/HPV -HR specimen adequacy: commen t Not Available [facility] (Lab) [address] [place], [address], 11/04/2021 17:24:44 10/31/19 22 10/30/2021 hemog lobin A1C, finge rstic k HgbA1C 6.3 Not Available [facility] [address] , [address], [place], [address], 10/30/2021 09:58:42 10/31/19 22 10/30/2021 MICRO ALBUM IN RANDO M URINE microalbumin , urine 21.8 mg/L 0.0-16 .6 high Not Available [facility] (Lab) [address] [place], [address], 10/30/2021 14:39:51 10/31/19 22 10/30/2021 LIPID PANEL cholesterol 200 mg/dL 140-19 9 high NIH ALICIA NSUS RECOM MENDA TION FOR TOMASA STERO L: ADULT CHILD LOW RISK: <200 <170 BORDE RLINE : <200- 239 ----- HIGH RISK: >240 >200 Not Available [facility] (Lab) [address] [place], [address], 10/30/2021 13:17:17 10/31/19 22 10/30/2021 LIPID PANEL triglyceride s 105 mg/dL 0-150 NIH ALICIA NSUS REPOR T RECOM MENDA TION FOR TRIGL YCERI LOU: ADULT CHILD LOW RISK: <150 ----- BODER LINE: 150-1 99 ----- HIGH RISK: >200 ----- Not Available [facility] (Lab) [address] [place], [address], 10/30/2021 13:17:17 10/31/19 22 10/30/2021 LIPID PANEL HDL cholesterol 50 mg/dL 40- Not Available [facility] (Lab) [address] [place], [address], 10/30/2021 13:17:17 10/31/19 22 10/30/2021 LIPID PANEL LDL cholesterol, calculated 129 mg/dL 0-130 NIH ALICIA NSUS REPOR T RECOM MENDA TIONS FOR LDL: ADULT CHILD LOW RISK <130 <110 (OPTI MAL LDL) <100 ----- BORDE RLINE : 130-1 59 ----- HIGH RISK: >160 >130 A TRIGL YCERI DE RESUL T >400 INVAL IDATE S THE CALCU LATIO N FOR LDL FRACT IONAT ION - THE LDL RESUL T WILL NOT BE REPOR VALORIE. Not Available [facility] (Lab) [address] [place], [address], 10/30/2021 13:17:17 10/31/19 22 10/30/2021 COMPR EHENS RUBEN METAB OLIC PANEL sodium 141 mmol/ L 137-14 5 Not Available [facility] (Lab) [address] [place], [address], 10/30/2021 13:17:14 10/31/19 22 10/30/2021 COMPR EHENS RUBEN METAB OLIC PANEL potassium 4.1 mmol/ L 3.5-5. 1 Not Available [facility] (Lab) [address] [place], [address], 10/30/2021 13:17:14 10/31/19 22 10/30/2021 COMPR EHENS RUBEN METAB OLIC PANEL chloride 107 mmol/ L 98-107 Not Available [facility] (Lab) [address] [place], [address], 10/30/2021 13:17:14 10/31/19 22 10/30/2021 COMPR EHENS RUBEN METAB OLIC PANEL carbon dioxide 26 mmol/ L 22-30 Not Available [facility] (Lab) [address] [place], [address], 10/30/2021 13:17:14 10/31/19 22 10/30/2021 COMPR EHENS RUBEN METAB OLIC PANEL anion gap 12.1 mmol/ L 14-22 low Not Available [facility] (Lab) [address] [place], [address], 10/30/2021 13:17:14 10/31/19 22 10/30/2021 COMPR EHENS RUBEN METAB OLIC PANEL glucose 104 mg/dL 70-99 high Not Available [facility] (Lab) [address] [place], [address], 10/30/2021 13:17:14 10/31/19 22 10/30/2021 COMPR EHENS RUBEN METAB OLIC PANEL BUN 11 mg/dL 8-19 Not Available [facility] (Lab) [address] [place], [address], 10/30/2021 13:17:14 10/31/19 22 10/30/2021 COMPR EHENS RUBEN METAB OLIC PANEL creatinine 0.59 mg/dL 0.66-1 .25 low Not Available [facility] (Lab) [address] [place], [address], 10/30/2021 13:17:14 10/31/19 22 10/30/2021 COMPR EHENS RUBEN METAB OLIC PANEL GFR >60 Refer ence Range : [place] ge GFR Healt hy Adult : >60 mL/mi n/1.7 3 m2 Chron ic Kidne y Disea se: 15-60 mL/mi n/1.7 3 m2 Kidne y Failu re: <15/m L/min /1.73 m2 www.n iddk. nih.g ov The MDRD study equat ion has not been valid ated in child becca <18 years of age; pregn ant women ; the elder ly >85 years of age; or in some racia l or ethni c subgr oups, such as Hispa nics. Outsi de the valid ated rima eters , estim ated GFR is less accur ate, requi ring clini timothy judgm ent on a case- by-ca se basis . Clini timothy inter preta tion for other races and ages must be made by the clini madhuri. The MDRD study equat ion has not been valid ated for the evalu ation of serum creat inine relat ed to nutri max l statu s or medic ation usage . For perso ns <18 years of age, a pedia tric GFR calcu lator is avail able on the [facility] websi te: https ://ww w.kid manoj.o rg/pr ofess ional s/kdo qi/gf r_cal culat or Not Available [facility] (Lab) [address] [place], [address], 10/30/2021 13:17:14 10/31/19 22 10/30/2021 COMPR EHENS RUBEN METAB OLIC PANEL alkaline phosphatase 56 U/L 38-126 Not Available [facility] (Lab) [address] [place], [address], 10/30/2021 13:17:14 10/31/19 22 10/30/2021 COMPR EHENS RUBEN METAB OLIC PANEL alanine aminotransfe rase 20 U/L 0-35 Not Available [facility] (Lab) [address] [place], [address], 10/30/2021 13:17:14 10/31/19 22 10/30/2021 COMPR EHENS RUBEN METAB OLIC PANEL aspartate aminotransfe rase 31 U/L 15-37 Not Available [facility] (Lab) [address] [place], [address], 10/30/2021 13:17:14 10/31/19 22 10/30/2021 COMPR EHENS RUBEN METAB OLIC PANEL bilirubin, total 0.50 mg/dL 0.20-1 .30 Not Available [facility] (Lab) [address] [place], [address], 10/30/2021 13:17:14 10/31/19 22 10/30/2021 COMPR EHENS RUBEN METAB OLIC PANEL calcium 9.5 mg/dL 8.4-10 .2 Not Available [facility] (Lab) [address] [place], [address], 10/30/2021 13:17:14 10/31/19 22 10/30/2021 COMPR EHENS RUBEN METAB OLIC PANEL total protein 7.5 g/dL 6.3-8. 2 Not Available [facility] (Lab) [address] [place], [address], 10/30/2021 13:17:14 10/31/19 22 10/30/2021 COMPR EHENS RUBEN METAB OLIC PANEL albumin 4.5 g/dL 3.0-4. 4 high Not Available [facility] (Lab) [address] [place], [address], 10/30/2021 13:17:14 10/31/19 22 10/30/2021 COMPR EHENS RUBEN METAB OLIC PANEL globulin 3.0 g/dL 2.6-4. 2 Not Available [facility] (Lab) [address] [place], [address], 10/30/2021 13:17:14 10/31/19 22 10/30/2021 COMPR EHENS RUBEN METAB OLIC PANEL A/G ratio 1.5 ratio 1.0-2. 0 Not Available [facility] (Lab) [address] [place], [address], 10/30/2021 13:17:14 06/18/19 23 06/18/2022 hemog lobin A1C, finge rstic k HgbA1C 6.3 Not Available [facility] [address] , [address], [place], [address], 06/18/2022 09:52:19 06/18/19 23 06/18/2022 COMPR EHENS RUBEN METAB OLIC PANEL sodium 139 mmol/ L 137-14 5 Not Available [facility] (Lab) [address] [place], [address], 06/18/2022 13:01:49 06/18/19 23 06/18/2022 COMPR EHENS RUBEN METAB OLIC PANEL potassium 4.4 mmol/ L 3.5-5. 1 Not Available [facility] (Lab) [address] [place], [address], 06/18/2022 13:01:49 06/18/19 23 06/18/2022 COMPR EHENS RUBEN METAB OLIC PANEL chloride 102 mmol/ L 98-107 Not Available [facility] (Lab) [address] [place], [address], 06/18/2022 13:01:49 06/18/19 23 06/18/2022 COMPR EHENS RUBEN METAB OLIC PANEL carbon dioxide 28 mmol/ L 22-30 Not Available [facility] (Lab) [address] [place], [address], 06/18/2022 13:01:49 06/18/19 23 06/18/2022 COMPR EHENS RUBEN METAB OLIC PANEL anion gap 13.4 mmol/ L 14-22 low Not Available [facility] (Lab) [address] [place], [address], 06/18/2022 13:01:49 06/18/19 23 06/18/2022 COMPR EHENS RUBEN METAB OLIC PANEL glucose 105 mg/dL 70-99 high Not Available [facility] (Lab) [address] [place], [address], 06/18/2022 13:01:49 06/18/19 23 06/18/2022 COMPR EHENS RUBEN METAB OLIC PANEL BUN 12 mg/dL 8-19 Not Available [facility] (Lab) [address] [place], [address], 06/18/2022 13:01:49 06/18/19 23 06/18/2022 COMPR EHENS RUBEN METAB OLIC PANEL creatinine 0.54 mg/dL 0.66-1 .25 low Not Available [facility] (Lab) [address] [place], [address], 06/18/2022 13:01:49 06/18/19 23 06/18/2022 COMPR EHENS RUBEN METAB OLIC PANEL GFR >60 Refer ence Range : [place] ge GFR Healt hy Adult : >60 mL/mi n/1.7 3 m2 Chron ic Kidne y Disea se: 15-60 mL/mi n/1.7 3 m2 Kidne y Failu re: <15/m L/min /1.73 m2 www.n iddk. nih.g ov The MDRD study equat ion has not been valid ated in child becca <18 years of age; pregn ant women ; the elder ly >85 years of age; or in some racia l or ethni c subgr oups, such as Hismd nics. Outsi de the valid ated rima eters , estim ated GFR is less accur ate, requi ring clini timothy judgm ent on a case- by-ca se basis . Clini timothy inter preta tion for other races and ages must be made by the clini madhuri. The MDRD study equat ion has not been valid ated for the evalu ation of serum creat inine relat ed to nutri max l statu s or medic ation usage . For perso ns <18 years of age, a pedia tric GFR calcu lator is avail able on the F websi te: https ://cooper aranda.o rg/pr ofess ional s/kdo qi/gf r_cal culat or Not Available [facility] (Lab) [address] [place], [address], 06/18/2022 13:01:49 06/18/19 23 06/18/2022 COMPR EHENS RUBEN METAB OLIC PANEL alkaline phosphatase 55 U/L 38-126 Not Available [facility] (Lab) [address] [place], [address], 06/18/2022 13:01:49 06/18/19 23 06/18/2022 COMPR EHENS RUBEN METAB OLIC PANEL alanine aminotransfe rase 22 U/L 0-35 Not Available [facility] (Lab) [address] [place], [address], 06/18/2022 13:01:49 06/18/19 23 06/18/2022 COMPR EHENS RUBEN METAB OLIC PANEL aspartate aminotransfe rase 20 U/L 15-37 Not Available [facility] (Lab) [address] [place], [address], 06/18/2022 13:01:49 06/18/19 23 06/18/2022 COMPR EHENS RUBEN METAB OLIC PANEL bilirubin, total 0.40 mg/dL 0.20-1 .30 Not Available [facility] (Lab) [address] [place], [address], 06/18/2022 13:01:49 06/18/19 23 06/18/2022 COMPR EHENS RUBEN METAB OLIC PANEL calcium 9.2 mg/dL 8.4-10 .2 Not Available [facility] (Lab) [address] [place], [address], 06/18/2022 13:01:49 06/18/19 23 06/18/2022 COMPR EHENS RUBEN METAB OLIC PANEL total protein 7.3 g/dL 6.3-8. 2 Not Available [facility] (Lab) [address] [place], [address], 06/18/2022 13:01:49 06/18/19 23 06/18/2022 COMPR EHENS RUBEN METAB OLIC PANEL albumin 4.1 g/dL 3.0-4. 4 Not Available [facility] (Lab) [address] [place], [address], 06/18/2022 13:01:49 06/18/19 23 06/18/2022 COMPR EHENS RUBEN METAB OLIC PANEL globulin 3.2 g/dL 2.6-4. 2 Not Available [facility] (Lab) [address] [place], [address], 06/18/2022 13:01:49 06/18/19 23 06/18/2022 COMPR EHENS RUBEN METAB OLIC PANEL A/G ratio 1.3 ratio 1.0-2. 0 Not Available [facility] (Lab) [address] [place], [address], 06/18/2022 13:01:49 06/18/19 23 06/18/2022 LIPID PANEL cholesterol 193 mg/dL 140-19 9 NIH ALICIA NSUS RECOM MENDA TION FOR TOMASA STERO L: ADULT CHILD LOW RISK: <200 <170 BORDE RLINE : <200- 239 ----- HIGH RISK: >240 >200 Not Available [facility] (Lab) [address] [place], [address], 06/18/2022 13:01:41 06/18/19 23 06/18/2022 LIPID PANEL triglyceride s 105 mg/dL 0-150 NIH ALICIA NSUS REPOR T RECOM MENDA TION FOR TRIGL YCERI LOU: ADULT CHILD LOW RISK: <150 ----- BODER LINE: 150-1 99 ----- HIGH RISK: >200 ----- Not Available [facility] (Lab) [address] [place], [address], 06/18/2022 13:01:41 06/18/19 23 06/18/2022 LIPID PANEL HDL cholesterol 43 mg/dL 40- Not Available [facility] (Lab) [address] [place], [address], 06/18/2022 13:01:41 06/18/19 23 06/18/2022 LIPID PANEL LDL cholesterol, calculated 129 mg/dL 0-130 NIH ALICIA NSUS REPOR T RECOM MENDA TIONS FOR LDL: ADULT CHILD LOW RISK <130 <110 (OPTI MAL LDL) <100 ----- BORDE RLINE : 130-1 59 ----- HIGH RISK: >160 >130 A TRIGL YCERI DE RESUL T >400 INVAL IDATE S THE CALCU LATIO N FOR LDL FRACT IONAT ION - THE LDL RESUL T WILL NOT BE REPOR VALORIE. Not Available [facility] (Lab) [address], [place], [address], 06/18/2022 13:01:41 11/17/19 22 11/16/2021 US, simi pedroa teral No observ ation record ed. [id number] [address], [place], [address], 07/21/2022 15:58:01 11/17/19 22 11/16/2021 US, erika ghosh unila teral No observ ation record ed. [id number] [place] [address], [place], [address], 07/21/2022 15:58:01 11/18/19 22 11/17/2021 US, erika ghosh unila teral No observ ation record ed. [id number] [address], [place], [address], 07/21/2022 15:58:01 11/18/19 22 11/17/2021 US, simi pedroa teral No observ ation record ed. [id number] [address], [place], [address], 07/21/2022 15:58:01 09/16/19 23 09/15/2022 MAMMO , diagn ostic , digit al, bilat eral No observ ation record ed. [address] (Imaging) [address], [place], [address], 09/16/2022 09:13:41 09/16/1909/15/2022 MAMMO , diagn ostic , digit al, bilat eral No observ ation record ed. [address] (Imaging) [address] [facility] [address], [place], [address], 09/16/2022 09:13:22 10/14/1910/13/2023 MAMMO , scree willis, digit al, bilat eral No observ ation record ed. [email or web address] [facility] [address] [facility] [address], [place], [address], 02/01/2024 09:41:26 Result Notes None recorded. Problems Name Problem SNOMED Code Status Onset Date Resolution Date Notes Provider Name and Address Organization Details Recorded Time Abscess 880677363 Active Not Available [facility] 3 15:56:42 Smoking reduced 795744724 Active Not Available [facility] 3 15:56:42 Mood swings 49474167 Active Not Available [facility] 3 15:56:42 Pain in left knee Active Not Available [facility] 3 15:56:42 Conjunctiviti s 7687595 Active Not Available [facility] 3 15:56:42 Obesity 936724233 Active 2022 Prieto Chavira MD [address] [place] [address], [address] , [facility] 3 10:37:35 Diabetes mellitus 07205845 Active 2022 JUAN Del Cid null, [facility] 3 10:40:46 Mammography abnormal 142266680 Active 2022 Mars Simon RN null, [facility] 3 11:59:47 Type 2 diabetes mellitus without complication 593055184 Active 2022 Prieto Chavira MD [address], [place], [address] , [facility] [employer] [facility] 3 14:22:11 Abscess of skin and/or subcutaneous tissue 97100365 Active 2022 Prieto Chavira MD [address], [address], [place], [address] , [facility] [employer] [facility] 3 15:49:53 Multiple skin tags 823215781 Active 2022 Prieto Chavira MD [address], [address], [place], [address] , [facility] [employer] [facility] [employer] [facility] 3 16:12:43 Hyperlipidemi a 75206514 Active 2023 PREETI Ledezma [address], [address], [place], [address] , [facility] [employer] [facility] [employer] [facility] 4 09:43:54 Screening for malignant neoplasm of breast Active 2023 PREETI Ledezma [address], [address], [place], [address] , [facility] [employer] [facility] [employer] [facility] 4 09:47:35 Screening for osteoporosis Active 2023 PREETI Ledezma [address], [address], [place], [address] , [facility] [employer] [facility] [employer] [facility] 4 09:51:06 Furuncle 681021372 Active 2023 PREETI Ledezma [address], [place], [address] , [facility] [employer] [facility] 4 09:57:25 Osteoporosis 28962281 Active 2023 Mars Simon RN 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 Procedures Surgical History Date Name Laterality Status Provider Name and Address Organization Details Recorded Time 4 Medicare Wellness CPT Code, Initial completed Marjorie Baird RN [facility] [facility] 09/28/2023 09:27:22 3 Skin Tag Removal - Multiple completed Prieto Chavira MD [address] [facility], [facility] [address], [place], [address], [employer] [facility] 03/08/2023 16:15:56 Imaging Results Imaging Date Name Status LastModified by Organiz ation Details LastModified Time 11/16/2021 US, breast, unilateral completed [id number] [address] [place] [address], [address], 07/21/2022 15:58:01 11/16/2021 US, breast, unilateral completed [id number] [address] [place] [address], [address], 07/21/2022 15:58:01 11/17/2021 US, breast, unilateral completed [id number] [address] [place] [address], [address], 07/21/2022 15:58:01 11/17/2021 US, breast, unilateral completed [id number] [address] [place] [address], [address], 07/21/2022 15:58:01 09/15/2022 MAMMO, diagnostic, digital, bilateral completed [email or web address] [facility] (Imaging) [address] [place] [address], [address], 09/16/2022 09:13:41 09/15/2022 MAMMO, diagnostic, digital, bilateral completed [email or web address] [facility] (Imaging) [address], [place], [address], 09/16/2022 09:13:22 10/13/2023 MAMMO, screening, digital, bilateral completed [email or web address] [facility] [address], [place], [address], 02/01/2024 09:41:26 Procedure Notes None recorded. Medical Equipment None Reported. Allergies Allergen ID Allergen Name Allergen Category Reaction Reaction Severity Criticality Documentation Date Start Date Code Code System Note Provider Name and Address Organization Details Recorded Time 73200 Substance with sulfonami de structure and antibacte rial mechanism of action (substanc e) medicatio n rash Not available Not available 07/21/2022 [id number] [id number] SNOMED Not Available [facility] 3 15:57:56 99674 Product containin g penicilli n (product) medicatio n rash Not available Not available 07/21/2022 82149 8001 SNOMED Not Available [facility] 3 15:57:56 Medications Name Sig Start Date Stop Date Status Note LastModified by Organization Details LastModified Time anastrozo le 1 mg tablet Take 1 tablet every day by oral route. 2014 active Not Available Not Available Not Avai lable clindamyc in HCl 300 mg capsule Take 1 capsule every 8 hours by oral route. 09/27 completed Not Available Not Available Not Available fluconazo le 150 mg tablet Take 1 tablet every third day by oral route. prn , if yeast infectio n occurs from antibiot ic active Not Available Not Available No t Available Alcohol Pads Apply 1 pad every week by topical route. active Not Available Not Available No t Available Accu-Chek Softclix Lancets USE 1 TO CHECK GLUCOSE TWICE DAILY active Not Available Not Available No t Available phentermi ne 37.5 mg tablet Take 1 tablet(s ) every day by oral route in the morning for 30 days. 09/07 completed Not Available Not Available Not Available ciproflox acin 500 mg tablet Take 1 tablet every 12 hours by oral route for 10 days. active Not Available Not Available No t Available triamcino lone acetonide 0.1 % topical cream APPLY THIN LAYER EXTERNAL LY TO AFFECTED AREA TWICE DAILY 09/14 completed Not Available Not Available Not Available magnesium oxide 400 mg (241.3 mg magnesium ) tablet 1 po daily 06/05 completed Not Available Not Available Not Available diclofena c potassium 50 mg tablet 1 po BID 06/05 completed Not Available Not Available Not Available ergocalci ferol (vitamin D2) 1,250 mcg (50,000 unit) capsule 1 po weekly 06/05 completed Not Available Not Available Not Available Maxitrol 3.5 mg/mL-10, 000 unit/mL-0 .1% eye drops,nicolas pension Instill 2 drops 4 times a day by ophthalm ic route. active Not Available Not Available No t Available Anusol-HC 25 mg rectal supposito ry Insert 1 supposit ory twice a day by rectal route. 02/03 completed Not Available Not Available Not Available metformin ER 500 mg tablet,ex tended release 24 hr TAKE 2 TABLETS BY MOUTH ONCE DAILY 09/27 completed Not Available Not Available Not Available tamoxifen 20 mg tablet Take 1 tablet every day by oral route. 2013 active Not Available Not Available Not Avai lable Adult Low Dose Aspirin 81 mg tablet,de layed release Take 1 tablet every day by oral route. 09/14 completed Not Available Not Available Not Available Asprin Ec Low Dose 81 mg tablet,de layed release Take 1 tablet every day by oral route. 2013 active Not Available Not Available Not Avai lable tamoxifen 06/05 completed Not Available Not Available Not Available BD Ultra-Fin e Short Pen Needle 31 gauge x 5/16 USE DIRECTED WITH OZEMPIC ONCE A WEEK active Not Available Not Available No t Available fluocinol one acetonide oil 0.01 % ear drops INSTILL 5 DROPS INTO AFFECTED EAR(S) both BY OTIC ROUTE 2 TIMES PER DAY active Not Available Not Available No t Available Chantix Continuin g Month Ravnidra 1 mg tablet Take 1 tablet twice a day by oral route. active Not Available Not Available No t Available Chantix Starting Month Box 0.5 mg (11)-1 mg (42) tablets in dose pack Take 1 tablet twice a day by oral route. active Not Available Not Available No t Available magnesium 400 mg (as magnesium oxide) capsule Take 1 capsule every day by oral route. 09/07 completed Not Available Not Available Not Available Trulicity 1.5 mg/0.5 mL subcutane ous pen injector Inject 1.5 mg every week by subcutan eous route. 10/30 completed pt started on ozempic Not Available Not Available Not Available Accu-Chek Guide test strips USE 1 TWICE DAILY active Not Available Not Available No t Available Accu-Chek Guide Glucose Meter USE DIRECTED active Not Available Not Available No t Available Ozempic 0.25 mg or 0.5 mg (2 mg/1.5 mL) subcutane ous pen injector INJECT 0.5MG EVERY WEEK BY SUBCUTAN EOUS ROUTE. 09/27 completed Not Available Not Available Not Available OneTouch Delica Plus Lancet 33 gauge check BS twice a day 2022 active Not Available Not Available Not Kervin bateman ID NOW COVID-19 Test Kit DIRECTED 06/18 completed Not Available Not Available Not Available Ozempic 1 mg/dose (4 mg/3 mL) subcutane ous pen injector Inject 1 mg every week by subcutan eous route. 2024 active Not Available Not Available Not Avtonio bateman Mounjaro 2.5 mg/0.5 mL subcutane ous pen injector Inject 2.5 mg every week by subcutan eous route. 09/14 completed Not Available Not Available Not Available Ozempic 0.25 mg or 0.5 mg (2 mg/3 mL) subcutane ous pen injector 12/07 completed Not Available Not Available Not Available Vitals Date Recorded Body mass index (BMI) Body height Oxygen saturation Oxygen saturation in Arterial blood by Pulse oximetry Heart rate Body temperature Body weight Systolic blood pressure Diastolic blood pressure Provider Name and Address Organization Details Last Updated DateTime 2 35.1 kg/m2 170.18 cm 97 % 97 % 67 /min 97 [degF] 189440. 69 g 160 mm[Hg] 90 mm[Hg] Not Available [facility] 3 15:56:29 Date Recorded Body mass index (BMI) Body height Oxygen saturation Oxygen saturation in Arterial blood by Pulse oximetry Heart rate Body temperature Body weight Systolic blood pressure Diastolic blood pressure Provider Name and Address Organization Details Last Updated DateTime 3 35.4 kg/m2 170.18 cm 98 % 98 % 79 /min 97.2 [degF] 122684. 88 g 170 mm[Hg] 100 mm[Hg] Not Available [facility] 3 15:56:29 Date Recorded Body height Body mass index (BMI) Body weight Body temperature Heart rate Oxygen saturation Oxygen saturation in Arterial blood by Pulse oximetry Systolic blood pressure Diastolic blood pressure Provider Name and Address Organization Details Last Updated DateTime 3 170.18 cm 34.9 kg/m2 728446. 1 g 97.7 [degF] 71 /min 99 % 99 % 180 mm[Hg] 80 mm[Hg] JUAN Del Cid [facility] [employer] [facility] 3 14:04:08 Date Recorded Body height Body mass index (BMI) Body weight Body temperature Heart rate Oxygen saturation Oxygen saturation in Arterial blood by Pulse oximetry Systolic blood pressure Diastolic blood pressure Provider Name and Address Organization Details Last Updated DateTime 3 170.18 cm 34.8 kg/m2 888649. 51 g 97.4 [degF] 97 /min 97 % 97 % 146 mm[Hg] 78 mm[Hg] Alina zaragoza CMA [facility] [employer] [facility] 3 15:43:41 Date Recorded Body height Body mass index (BMI) Body weight Body temperature Heart rate Oxygen saturation Oxygen saturation in Arterial blood by Pulse oximetry Respiratory rate Systolic blood pressure Diastolic blood pressure Provider Name and Address Organization Details Last Updated DateTime 4 170.18 cm 32.7 kg/m2 53542.8 1 g 98 [degF] 68 /min 97 % 97 % 16 /min 136 mm[Hg] 90 mm[Hg] Marjorie Baird RN [facility] [employer] 4 09:32:57 Date Recorded Pain severity - 0-10 verbal numeric rating [Score] - Reported Provider Name and Address Organization Details Last Updated DateTime 09/28/2023 0 Shara Abraham RN [facility] [employer] 09/28/2023 10:18:15 Social History Question Answer Notes LastModified by Organizat ion Details LastModified Time Tobacco Smoking Status Former Smoker quit October 2014 Not Available [facility] 07/21/2022 15:55:01 What Was The Date Of Your Most Recent Tobacco Screening? 09/28/2023 Information not available 09/28/2023 How Much Tobacco Do You Smoke? No [id number] Information not available 07/21/2022 Sex: Unknown Functional Status None recorded. Mental Status None recorded. Family History Nothing Reported. Medical History Condition Response BREAST PROBLEMS Y CANCER: SPECIFY Y TUBERCULOSIS Y Gynecological HistoryNo gynecological history recorded. Obstetrics History GPAL:G 0 P 0 0 0 0 Immunizations Vaccine Type Date Status Note Provider Nam e and Address Organization Details Recorded Time Influenza, split virus, quadrivalent, PF 3 completed Alina Portillo CMA null, [facility] 03/08/2023 15:43:49 influenza, unspecified formulation 3 completed Alina Portillo CMA null, [facility] 03/08/2023 15:43:49 Tdap 3 completed Alina Portillo CMA null, [facility] 03/08/2023 15:43:49 SARS-COV-2 (COVID-19) vaccine, UNSPECIFIED 1 completed Alina Portillo CMA null, [facility] 03/08/2023 15:43:48 SARS-COV-2 (COVID-19) vaccine, UNSPECIFIED 1 completed Alina Portillo CMA null, [facility] 03/08/2023 15:43:49 SARS-COV-2 (COVID-19) vaccine, UNSPECIFIED 2 completed Alina Portillo CMA null, [facility] 03/08/2023 15:43:49 SARS-COV-2 (COVID-19) vaccine, UNSPECIFIED 3 completed Alina Portillo CMA null, [facility] 03/08/2023 15:43:49 RSV, recombinant, protein subunit RSVpreF, adjuvant reconstituted, 0.5 mL, PF 3 completed Latoya Ledesma RN null, [facility] 04/12/2023 12:34:57 Influenza, split virus, trivalent, PF 4 completed Marjorie Baird RN null, [facility] 01/24/2024 10:21:01 COVID-19, mRNA, LNP-S, bivalent, PF, 30 mcg/0.3 mL dose 2 completed Alina Portillo CMA null, [facility] 03/08/2023 15:43:49 Influenza, split virus, quadrivalent, preservative 2 completed Alina Portillo CMA null, [facility] 03/08/2023 15:43:48 COVID-19, mRNA, LNP-S, PF, 30 mcg/0.3 mL dose 1 completed Alina Portillo CMA null, [facility] 03/08/2023 15:43:48 Influenza, split virus, quadrivalent, preservative 1 completed Alina Portillo CMA null, [facility] 03/08/2023 15:43:48 Tdap 7 completed Not Available [facility] 07/21/2022 15:57:54 pneumococcal polysaccharide PPV23 7 completed Not Available [facility] 07/21/2022 15:57:54 Influenza, split virus, quadrivalent, preservative 6 completed Not Available [facility] 07/21/2022 15:57:55 Influenza, split virus, quadrivalent, PF 5 completed Not Available [facility] 07/21/2022 15:57:55 Influenza, split virus, trivalent, preservative 4 completed Alina Portillo CMA null, [facility] 03/08/2023 15:43:49 Past Encounters Encounter ID Performer Location Encounter Start Date Encounter Closed Date Diagnosis/Indication Diagnosis SNOMED-CT Code Diagnosis ICD10 Code Diagnosis Note [id number] [address] [place] [address] 10/16/2020 00:00:00 10/17/2020 06:31:48 [id number] [facility] [place] [address] [place] [address] [place] [address] 10/23/2020 00:00:00 10/23/2020 20:37:31 [id number] [facility] [place] [address] [place] [address] [place] [address] 01/30/2021 00:00:00 01/30/2021 10:40:19 [id number] [facility] [place] [address] [place] [address] [place] [address] 10/30/2021 00:00:00 10/31/2021 11:34:44 [id number] [facility] [place] [address] [place] [address] [place] [address] 06/18/2022 00:00:00 06/18/2022 16:02:35 [id number] Prieto Chavira MD [facility] [place] [address] [place] [address] [place] [address] 09/14/2022 13:53:08 09/14/2022 14:35:58 Adult health examination 563671558 Z00.00 Mammography abnormal 168 627029 R92.8 Type 2 romana betes mellitus without complication 280613201 E11.9 Will f/u in 3 months. [id number] Prieto Chavira MD [facility] [place] [address] [place] [address] [place] [address] 03/08/2023 15:36:43 03/08/2023 16:16:24 Type 2 diabetes mellitus without complication 398812101 E11.9 Will f/u in 3 months. Will increase to 1 mg of ozempic Abscess of skin and/or subcutaneous tissue 31611887 L02.91 Continue heat and PRID Multiple skin tags 14181 5829 L91.8 Removed approximat rosa 10 skin tags. [id number] PREETI Ledezma [facility] shrestha [address] [facility] [place] [address] 09/28/2023 09:13:00 09/28/2023 10:02:44 Adult health examination 389917368 Z00.00 Screening for disorder 683257645 Z13.9 Type 2 romana betes mellitus without complication 918871125 E11.9 Hyperlipidemia 32131336 E78.5 Screening for malignant neoplasm of breast 671402745 Z12.39 Screening for osteoporosis 905510352 Z13.820 Furuncle 758678595 L02.9 2 Health Concerns Section Related Observation LastModified by Organization Detai ls LastModified Time None Recorded Concern Status LastModified by Organization Details LastModified Time None Recorded Advance Directives Directive None Recorded Payers Encounter Date Sequence Insurance Name Policy Number Policy Garcia Covered Member ID Garcia Member ID Guarantor Name 09/14/2022 1 [place] [id number] [place]ine [id number] [facility] 03/08/2023 1 [employer] (MEDICARE REPLACEMENT/A DVANTAGE - HMO) [place] Cynthia Metzger [id number] [facility] 09/28/2023 1 [employer] (MEDICARE REPLACEMENT/A DVANTAGE - HMO) [place] Cynthia Metzger [id number] [facility] Notes Date Note Type Note Provider Name and Address Organization Details Recorded Time 09/14/2022 text/html Here for annual physical. Needs a mammogram and needs a diagnostic mammogram. Has a hx of abnormal mammogram.Has been out of ozempic was on 0.5 mg weekly. Needs A1C check.Ears itch on inside. UTD with colon cancer screening. Prieto Chavira MD [address] [facility] [address], [place], [address], [facility] 09/14/2022 22:57:24 03/08/2023 text/html Here for skin tags removal they hurt and bother her and has a knot in buttocks. Hit it and put drawing jordyn on it. Used PRID and has not gone away. It is noticeable through clothes. Prieto Chavira MD [address] [facility], [facility] [address], [place], [address], [employer] 03/08/2023 22:12:43 09/28/2023 text/html chronic cyst on right buttock for over a year , non tender. PREETI Ledezma [address], [facility] [address], [place], [address], [employer] 10/16/2023 22:58:38 OBGyn Episode No OBEpisode recorded.
== END 2024-09-17 12:24 | disposition home or self-care (01) ==
LOC: ANHIMG 12:25
PROVIDERS: PCP Physician Assistant; Visit Provider Physician Assistant
DX: R92.8 Other abnormal and inconclusive findings on diagnostic imaging of breast (principal)
CPT/HCPCS: 76642; 77062; 77066; G0279

== ENCOUNTER 2025-03-20 10:30 | Outpatient (CLI) | payer MEDICARE, SELFPAY ==
--- NOTE | ~2025-03-20 | MMUS_ITS ---
EXAMINATION: MM diagnostic john RT w esperanza, US breast RT limited HISTORY: Follow-up right breast mass TECHNIQUE: Additional 3-D tomosynthesis images of the right breast were performed and synthetic 2-D images were generated. CAD analysis was submitted and interpreted. High resolution Limited right breast ultrasound was performed. COMPARISON: Comparison to multiple prior studies sequentially, with oldest reviewed study dated 02/02/2021. BREAST PARENCHYMAL COMPOSITION: Not dense: There are scattered areas of fibroglandular density. FINDINGS: MAMMOGRAPHIC FINDINGS: There is architectural distortion centered in the upper outer quadrant of the right breast with developing coarse calcifications internally. There is a history of prior right mastectomy with breast reduction surgery. ULTRASOUND: Limited right breast ultrasound: At 8:00, 6 cm from the nipple there is a 1.5 cm cyst. At 8:00, 4 cm from the nipple there is a stable irregular shaped hypoechoic mass with internal calcifications measuring 4.7 x 1.5 x 3.8 cm compared with 4.8 x 3.8 x 1.9 cm on 09/15/2024, most likely benign fat necrosis. IMPRESSION: 1. Probable benign fat necrosis of the right breast at 8:00, 4 cm from the nipple. 2. Recommend 6 month follow-up diagnostic bilateral mammogram and right breast ultrasound recommended. BI-RADS category 3, probably benign findings. Reviewed, dictated and finalized at location B. IMPRESSION: 1. Probable benign fat necrosis of the right breast at 8:00, 4 cm from the nipp le. 2. Recommend 6 month follow-up diagnostic bilateral mammogram and right breast ultrasound recommended. BI-RADS category 3, probably benign findings.
--- OUTSIDE RECORDS SUMMARY | 2025-03-20 11:56 | XMS_ITS | Clinical Summary ---
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 Gender Identity Not on file Sexual Orientation [...] 09/11/2008 OSTEOPOROSIS SCREENING 2022 INFLUENZA VACCINE (#1) 2024 RSV VACCINE (60+ or ) (1 - [...] PM CDT Narrative 09/12/2008 12:29 PM CDT [facility] [address] [place], [place] [address] Admit Date: 09/11/2008 KHLOE METZGER Sex: F Admit Prov: CHUNG VANN II Date: 1955 Primary Care Prov: PCP, NONE CMRN: [id number] Room: [facility] SSN: [id number] IMAGING SERVICES Ordering Prov: CHUNG VANN II Accession Number: [id number] Interpretation RIGHT BREAST MRI GUIDED NEEDLE LOCALIZATION WITH TISSUE MARKER PLACEMENT AND [facility] BREAST FULL FIELD DIGITAL DIAGNOSTIC MAMMOGRAM WITH [...] [facility]K Procedure Note Valarie Corona - 09/12/2008 [facility] [address] [place], [place] [address] Admit Date: 09/11/2008 KHLOE MEZTGER Sex: F Admit Prov: CHUNG VANN II Date: 1955 Primary Care Prov: PCP, NONE CMRN: [id number] Room: MRI-A SSN: [id number] IMAGING SERVICES Ordering Prov: CHUNG VANN II [...]
--- OUTSIDE RECORDS SUMMARY | 2025-03-20 11:57 | XMS_ITS | Encounter Summary ---
Author Organization [facility] Address 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 Gender Identity Not on file Sexual Orientation [...] PM CDT Narrative 09/12/2008 12:29 PM CDT [facility] [address] [place], [place] [address] Admit Date: 09/11/2008 KHLOE METZGER Sex: F Admit Prov: CHUNG VANN II Date: 1955 Primary Care Prov: PCP, NONE CMRN: [id number] Room: [facility] SSN: [id number] IMAGING SERVICES Ordering Prov: CHUNG VANN II Accession Number: [id number] Interpretation RIGHT BREAST MRI GUIDED NEEDLE LOCALIZATION WITH TISSUE MARKER PLACEMENT AND [facility] BREAST FULL FIELD DIGITAL DIAGNOSTIC MAMMOGRAM WITH [...] AMK Procedure Note Valarie Corona - 09/12/[address] [place], [place] [address] Admit Date: 09/11/2008 KHLOE METZGER Sex: F Admit Prov: CHUNG VANN II Date: 1955 Primary Care Prov: PCP, NONE CMRN: [id number] Room: [facility] SSN: [id number] IMAGING SERVICES Ordering Prov: CHUNG VANN II [...] PM CDT Narrative 09/13/2008 5:19 PM CDT [facility] [address], [place] [address] Admit Date: 09/11/2008 KHLOE METZGER Sex: F Admit Prov: CHUNG VANN II Date: 1955 Primary Care Prov: PCP, NONE CMRN: [id number] Room: [facility] SSN: [id number] IMAGING SERVICES Ordering Prov: CHUNG VANN II Accession Number: [id number] Addendum Addendum: The pathology from the patient's [...] AMK Procedure Note Valarie Corona - 09/13/2008 [facility] [address] [place], [place] [address] Admit Date: 09/11/2008 KHLOE METZGER Sex: F Admit Prov: CHUNG VANN II Date: 1955 Primary Care Prov: PCP, NONE CMRN: [id number] [facility]: [id number] [facility] Ordering Prov: GENE CHUNG DUKES [...]
--- OUTSIDE RECORDS SUMMARY | 2025-03-20 11:57 | XMS_ITS | Clinical Summary ---
Author Organization [facility] Address [address] [place] [address] Care Team Providers Care Buffing Machine Tender Name Role Phone Unavailable Primary Care Provider [...] Scan (General) 2022 COVID-19 Vaccine ( - 2024-2 6 season) 2025 Influenza Adult (#1) 2025 RSV Immunization or 60+ Years (1 - 1-dose 75+ series) 2032 Hepatitis A Vaccines Aged Out No long er eligible based on patient's age to complete this topic Meningococcal B Vaccine Aged Out No l onger eligible based on patient's age to complete this topic Meningococcal Vaccine Aged Out No derik vane eligible based on patient's age to complete this topic RSV Immunizations Under 20 Months Aged Out No longer eligible based on patient's age to complete this topic
--- OUTSIDE RECORDS SUMMARY | 2025-03-20 11:57 | XMS_ITS | Data Portability ---
Author Organization [facility] [employer], Main Office Address [address] [place] [address] Care Team Providers Care Sql Bi Developer Name Role Phone SEGUN SADLER Primary Care Provider SEGUN SADLER Referring Provider Assessment No assessment recorded. Plan of Treatment Reminders Order Date Submit Date Provider Last Modified By Organization Details Last Modified Time Details Appointments None recorded. Lab pap, IG + HR HPV 2024 025 [facility] (Lab), [address] [place], [address], 5 14:28:14 TSH, serum or plasma 2024 025 [facility] (Lab), [address] [place], [address], 5 11:53:38 vitamin D, 25-hydroxy , total, serum 2024 025 [facility] (Lab), [address] [place], [address], 5 11:53:38 glycohemog lobin, total, blood 2024 025 [facility] (Lab), [address] [place], [address], 5 11:53:37 lipid panel, serum 2024 025 [facility] (Lab), [address] [place], [address], 5 11:53:37 CBC w/ auto diff 2024 025 [facility] (Lab), [address] [place], [address], 5 11:53:38 CMP, serum or plasma 2024 025 [facility] (Lab), [address] [place], [address], 5 11:53:38 vitamin B12 + folate, serum or blood [address] (Lab), [address] [place], [address], 5 09:12:31 lipid panel, serum 2023 024 [facility] (Lab), [address] [place], [address], 4 15:24:36 CK (creatine kinase), total, serum 2023 024 [facility] (Lab), [address] [place], [address], 4 15:24:36 CMP, serum or plasma 2023 024 [facility] (Lab), [address] [place], [address], 4 15:24:36 CBC w/ auto diff 2023 024 [facility] (Lab), [address] [place], [address], 4 15:24:36 T4, free, serum 2023 024 [facility] (Lab), [address] [place], [address], 4 15:24:36 TSH, serum or plasma 2023 [facility] (Lab), [address] [place], [address], 4 15:24:36 glycohemog lobin, total, blood 2023 [facility] (Lab), [address] [place], [address], 4 15:24:35 Referral gastroente rologist referral - Has seen Sara in the past. (Dr. Bermudez declined by [facility], updated to Dr. Tr Paz)Plea se call patient to schedule an appointmen t. Thank you. 2024 [facility] Declan howell MD, [address], [address], [place], [address], 16:25:20 dermatolog ist referral - boil right buttock for a year . I put her on cipro . Please call patient to schedule an appointmen t. Please eval and treat. Thank you 2023 [email or web address] Kendra Herzog MD (Dermatology) , [address], [place], [address], 4 09:15:09 Procedures None recorded. Surgeries None recorded. Imaging US, breast - Please call patient to schedule. Note from provider: As per radiologis t's recommenda tions; Ok for unilateral Or bilateral. 2024 [facility], [address], [place], [address], 5 10:55:56 MAMMO, diagnostic , digital, bilateral - Please call patient to schedule. 2024 025 [email or web address] [facility], [address], [place], [address], 5 11:57:50 DEXA [email or web address] [place] [address] (Imaging), [address] [facility] [address], [place], [address], 4 10:03:00 MAMMO, screening, digital, bilateral 2023 024 [facility] (Imaging), [address] [facility] [address], [place], [address], 4 15:59:34 Medication Orders hydroquino ne 4 % topical cream 2024 025 [facility] [address] [place], [address], 5 12:56:57 ferrous sulfate 325 mg (65 mg iron) tablet 2024 025 [facility] [address] [place], [address], 5 14:49:50 cetirizine 10 mg tablet 2024 025 [facility] [address] [place], [address], 5 14:49:49 Flonase Allergy Relief 50 mcg/actuat ion nasal spray,susp ension 2024 025 [facility] [address] [place], [address], 5 12:16:24 cyanocobal gomez (vit B-12) 1,000 mcg/mL injection solution 2024 025 [email or web address] Not available 5 17:18:15 Ozempic 1 mg/dose (4 mg/3 mL) subcutaneo us pen injector 2022 023 [email or web address] [facility] [address] [place], [address], 5 15:57:13 clindamyci n HCl 300 mg capsule 2022 023 [email or web address] [facility] [address] [place], [address], 4 09:29:52 fluconazol e 150 mg tablet 2022 023 [facility] [address] [place], [address], 5 14:18:34 Patient TargetsNo targets recorded. Patient Instructions Encounter Date Encounter Id Patient Instructions Last Modified By Organization Details Last Modified Time 09/28/2023 [id number] dementia rating scale-2* Not available 09/28/2023 10:23:36 alcohol misuse* [email or web address] Not availab le 10/16/2023 22:58:29 depression screening* [email or web address] Not available 10/16/2023 22:58:29 multi-dimensiona l health assessment questionnaire* Not available 09/28/2023 10:24:25 [place] Advance Directives Not available 09/28/2023 10:23:31 advance care planning: care instructions Not available 09/28/2023 10:23:31 care plan* Not available 09/27 10:23:35 Personalized a lt Plan and Screening Recommendations Advance Directives - Do you have one? Yes I have no recommedations. Advance Directives - Do we have your advance directive on file in your health record? Primary Prevention/Interven tion (prevents or decreases the chance of common diseases from occurring) Smoking Risk: Non Smoker I have no recommedations. Alcohol Misuse Screening: Negative I have no recommedations. Weight: Overweight try to lose 10% of your body weight Physical activity: Need more exercise/physical activity minimum of 20-30 minutes activity that causes mild breathlessness/day Nutrition: Average Eat Heart Healthy Diet Fall Risk (screened today): Low I have no recommedations. Vaccines Pneumococcal: No further needed Influenza: Your next one in the fall of this year Chronic Disease Risks Stroke: Low Risk I have no recommendations Heart Attack: Low risk I have no recommendations Clogging of the Arteries: Low risk I have no recommendations Diabetes: Intermediate Risk Active diagnosis, Continue current treatment plan Secondary Prevention/Interven tion (detects treatable diseases before they may cause symptoms, disability, or ) Breast Cancer Screening with mammogram: Recommended today Cervical/Uterine/Ov jose Cancer Screening: No screening necessary Osteoporosis Screening: Recommended today Date Screening Last Performed: Colon Cancer Screening: No screening necessary Date Screening Last Performed: Eye Disease Screening: No Eye exam necessary Dementia Risk: Low I have no recommendations Depression Screening: Negative Active diagnosis, Continue current treatment plan Not available 09/28/2023 10:31:58 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 I put her on cipro . Please call patient to schedule an appointment. Please eval and treat. Thank you Referring Physician: [facility]ler [facility], Encounter Date: 09/28/2023 Telephone Operator Referral for Screening for malignant neoplasm of colon Has seen Sara in the past. (Dr. Bermudez declined by [facility], updated to Dr. Gupta)Please call patient to schedule an appointment. Thank you. Referring Physician: [facility], Encounter Date: 12/28/2024 Results Created Date Observation Date Name Description Value Unit Range Abnormal Flag Note LastModifiedBy Organization Detail LastModifiedTime 10/14/19 24 10/13/2023 MAMMO , scree yolie pedro al, bilat eral No observ ation record ed. [email or web address] [facility] [address] [facility] [address], [place], [address], 02/01/2024 09:41:26 09/18/19 25 09/17/2024 MAMMO , diagn ostic , digit al, bilat eral No observ ation record ed. [email or web address] [facility] [address], [place], [address], 01/03/2025 15:06:40 09/19/1909/17/2024 MAMMO , diagn ostic , digit al, bilat eral No observ ation record ed. [facility] [address], [place], [address], 01/03/2025 15:06:41 Result Notes None recorded. Problems Name Problem SNOMED Code Status Onset Date Resolution Date Notes Provider Name and Address Organization Details Recorded Time Abscess 256361504 Active Not Available [facility] 3 15:56:42 Smoking reduced 050626175 Active Not Available [facility] 3 15:56:42 Mood swings 33235774 Active Not Available [facility] 3 15:56:42 Pain in left knee Active Not Available [facility] 3 15:56:42 Conjunctiv itis 9898584 Active Not Available [facility] 3 15:56:42 Obesity 464843103 Active 2022 Prieto Chavira MD [address], [place], [address] , [facility] [employer] [facility] 3 10:37:35 Diabetes mellitus 25414279 Active 2022 JUAN Del Cid null, [facility] 3 10:40:46 Mammograph y abnormal 961474179 Active 2022 Mars Simon RN null, [facility] 3 11:59:47 Type 2 diabetes mellitus without complicati on 157776184 Active 2022 Prieto Chavira MD [address], [place], [address] , [facility] 3 14:22:11 Abscess of skin and/or subcutaneo us tissue 85956871 Active 2022 Prieto Chavira MD [address], [address], [place], [address] , [employer] 3 15:49:53 Multiple skin tags 772496984 Active 2022 Prieto Chavira MD [address], [address], [place], [address] , [employer] 3 16:12:43 Hyperlipid emia 53636978 Active 2023 PREETI Ledezma [address], [address], [place], [address] , [employer] 4 09:43:54 Screening for malignant neoplasm of breast Active 2023 PREETI Ledezma [address], [address], [place], [address] , [employer] 4 09:47:35 Screening for osteoporos is Active 2023 PREETI Ledezma [address], [address], [place], [address] , [employer] 4 09:51:06 Furuncle 004105696 Active 2023 PREETI Ledezma [address], [address], [place], [address] , [employer] 4 09:57:25 Osteoporos is 30794456 Active 2023 Mars Simon RN null, [facility] 4 16:02:59 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 PREETI Ledezma [address], [address], [place], [address] , [employer] 5 11:01:45 History of mastectomy 312209171 Active 2024 PREETI Ledezma [address], [address], [place], [address] , [employer] 5 17:02:16 Body mass index 30+ - obesity 419088659 Active 2024 PREETI Ledezma [address], [place], [address] , [employer] [facility] [email or web address] 5 11:25:26 Cobalamin deficiency 753334105 Active 2024 PREETI Ledezma [address], [address], [place], [address] , [employer] 5 11:27:22 Adult health examinatio n Active 2024 PREETI Ledezma [address], [address], [place], [address] , [employer] [facility] [email or web address] 5 14:19:17 Iron deficiency 24280002 Active 2024 DELL Booker [address], [place], [address] , [employer] [facility] [email or web address] 5 14:36:03 Dysfunctio n of left eustachian tube 2006207556259 106 Active 2024 DELL Booker [address], [place], [address] , [employer] [facility] [employer] 5 14:47:07 Vitamin deficiency 02021316 Active 2024 DELL Booker [address], [place], [address] , [employer] [facility] [employer] 5 11:28:58 Keloid scar 90570804 Active 2024 DELL Booker [address], [place], [address] , [employer] [facility] [employer] 5 12:55:32 Problem Notes None recorded. Procedures Surgical History Date Name Laterality Status Provider Name and Address Organization Details Recorded Time Date of Last Pap Smear completed Jaylyn Gomez RN [facility] [email or web address] 02/08/2025 12:25:44 4 Medicare Wellness CPT Code, Initial completed Marjorie Baird RN [facility] 09/28/2023 09:27:22 3 Skin Tag Removal - Multiple completed Prieto Chavira MD [address], [facility] [address], [place], [address], [employer] 03/08/2023 16:15:56 Imaging Results None recorded. Procedure Notes None recorded. Medical Equipment None Reported. Allergies Allergen ID Allergen Name Allergen Category Reaction Reaction Severity Criticality Documentation Date Start Date Code Code System Note Provider Name and Address Organization Details Recorded Time 63140 Substance with sulfonami de structure and antibacte rial mechanism of action (substanc e) medicatio n rash Not available Not available 07/21/2022 64882 8003 SNOMED Not Available [facility] 3 15:57:56 98815 Product containin g penicilli n (product) medicatio n rash Not available Not available 07/21/2022 05268 8001 SNOMED Not Available [facility] 3 15:57:56 Medications Name Sig Start Date Stop Date Status Note LastModified by Organization Details LastModified Time anastrozo le 1 mg tablet Take 1 tablet every day by oral route. 2014 active Not Available Not Available Not Avai lable clindamyc in HCl 300 mg capsule Take 1 capsule every 8 hours by oral route. 09/27 completed Not Available Not Available Not Available cetirizin e 10 mg tablet TAKE 1 TABLET BY MOUTH ONCE DAILY AT BEDTIME active Not Available Not Available No t Available fluconazo le 150 mg tablet Take 1 tablet every third day by oral route. prn , if yeast infectio n occurs from antibiot ic 12/28 completed Not Available Not Available Not Available hydroquin one 4 % topical cream APPLY CREAM TOPICALL Y TO AFFECTED AREA TWICE DAILY IN THE MORNING AND AT BEDTIME. active Not Available Not Available No t [...] hours by oral route for 10 days. 09/28 completed Not Available Not Available Not Available triamcino lone acetonide 0.1 % topical cream APPLY THIN LAYER EXTERNAL LY TO AFFECTED AREA TWICE DAILY 09/14 completed Not Available Not Available Not Available magnesium oxide 400 mg (241.3 mg magnesium ) tablet 1 po daily 06/05 completed Not Available Not Available Not Available cyanocoba nichelle (vit B-12) 1,000 mcg/mL injection solution Inject 1 mL every month by subcutan eous route. 2024 active Not Available Not Available Not Avai lable diclofena c potassium 50 mg tablet 1 po BID 06/05 completed Not Available Not Available Not Available ergocalci ferol (vitamin D2) 1,250 mcg (50,000 unit) capsule TAKE 1 CAPSULE BY MOUTH ONCE A WEEK DIRECTED active Not Available Not Available No t Available Maxitrol 3.5 mg/mL-10, 000 unit/mL-0 .1% [...] No t Available Chantix Continuin g Month Ravindra 1 mg tablet Take 1 tablet twice a day by oral route. active Not Available Not Available No t Available FeroSul 325 mg (65 mg iron) tablet TAKE 1 TABLET BY MOUTH ONCE DAILY DIRECTED active Not Available Not Available No [...] ozempic Not Available Not Available Not Available Flonase Allergy Relief 50 mcg/actua tion nasal spray,nicolas [employer] [place] 1 spray twice a day by intranas al route as needed for 30 days. 02/08 completed Not Available Not Available Not Available Accu-Chek [...] 2022 active Not Available Not Available Not Avai lable ID NOW COVID-19 Test Kit DIRECTED 06/18 completed Not Available Not Available Not Available Ozempic 1 mg/dose (4 mg/3 mL) subcutane ous pen injector Inject 1 mg every week by subcutan eous route. 2024 active Not Available Not Available Not Avai lable Mounjaro 2.5 mg/0.5 mL subcutane ous pen injector Inject 2.5 mg every week by subcutan eous route. 09/14 completed Not Available Not Available Not Available Ozempic 0.25 mg or 0.5 mg (2 mg/3 mL) subcutane ous pen injector 12/07 completed Not Available Not Available Not Available Vitals Date Recorded Pain severity - 0-10 verbal numeric rating [Score] - Reported Provider Name and Address Organization Details Last Updated DateTime 09/28/2023 0 Shara Abraham RN [facility] [employer] [facility] 09/28/2023 10:18:15 Date Recorded Body height Body mass index (BMI) Body weight Body temperature Heart rate Oxygen saturation Oxygen saturation in Arterial blood by Pulse oximetry Respiratory rate Systolic And Diastolic Provider Name and Address Organization Details Last Updated DateTime 4 170.18 cm 32.7 kg/m2 16544.8 1 g 98 [degF] 68 /min 97 % 97 % 16 /min 136/90 mm[Hg] Marjorie Baird RN [facility] [employer] [facility] 4 09:32:57 Date Recorded Body weight Body temperature Oxygen saturation Oxygen saturation in Arterial blood by Pulse oximetry Heart rate Systolic And Diastolic Provider Name and Address Organization Details Last Updated DateTime 5 08180.5 8 g 97.3 [degF] 99 % 99 % 92 /min 142/82 mm[Hg] Elsa Cedillo Sandrine [facility] [employer] [facility] 5 11:06:26 Date Recorded Body weight Body mass index (BMI) Body height Body temperature Heart rate Respiratory rate Oxygen saturation Oxygen saturation in Arterial blood by Pulse oximetry Pain severity - 0-10 verbal numeric rating [Score] - Reported Systolic And Diastolic Provider Name and Address Organization Details Last Updated DateTime 5 35322.5 g 32.9 kg/m2 170.18 cm 97.7 [degF] 66 /min 20 /min 99 % 99 % 0 160/70 mm[Hg] Jaylyn Gomez RN [facility] [employer] [facility] 5 14:24:20 Date Recorded Body height Body mass index (BMI) Body weight Body temperature Heart rate Oxygen saturation Oxygen saturation in Arterial blood by Pulse oximetry Respiratory rate Pain severity - 0-10 verbal numeric rating [Score] - Reported Systolic And Diastolic Provider Name and Address Organization Details Last Updated DateTime 5 170.18 cm 33.1 kg/m2 36758.3 4 g 97.5 [degF] 86 /min 99 % 99 % 20 /min 0 170/84 mm[Hg] Jaylyn Gomez RN [facility] [employer] [facility] 5 12:24:02 Date Recorded Body height Body mass index (BMI) Body weight Body temperature Heart rate Oxygen saturation Oxygen saturation in Arterial blood by Pulse oximetry Systolic And Diastolic Provider Name and Address Organization Details Last Updated DateTime 3 170.18 cm 34.8 kg/m2 887569. 51 g 97.4 [degF] 97 /min 97 % 97 % 146/78 mm[Hg] Alina zaragoza CMA [facility] [employer] [facility] 3 15:43:41 Social History Question Answer Notes LastModified by Organizat ion Details LastModified Time Tobacco Smoking Status Former Smoker quit October 2014 Not Available [employer] 07/21/2022 15:55:01 Are You Blind Or Do You Have Difficulty Seeing? No Information not available 12/28/2024 What Is Your Level Of Caffeine Consumption? None Information not available 09/28/2024 In The 14 Days Before Symptom Onset, Have You Had Close Contact With A Laboratory-confir med COVID-19 While That Case Was Ill? No Information not available 12/28/2024 In The 14 Days Before Symptom Onset, Have You Had Close Contact With A Person Who Is Under Investigation For COVID-19 While That Person Was Ill? No Information not available 12/28/2024 Are You Deaf Or Do You Have Serious Difficulty Hearing? No Information not available 12/28/2024 What Type Of Diet Are You Following? REGULAR Information not available 09/28/2024 What Is The Highest Grade Or Level Of School You Have Completed Or The Highest Degree You Have Received? [id number] Information not available 09/28/2024 Have There Been Any Changes To Your Family Or Social Situation? No Information no t available 09/28/2024 Do You Use Insect Repellent Routinely? Yes Information not available 09/28/2024 Where Do You Live? [place] Information not available 09/28/2024 Advance Directive- Providers Has Reviewed Directive And Consents To Follow Them (insert Provider Name With Any Objectives In Notes Field) No Information not available 02/08/2025 Presence Of Domestic Violence No Information no t available 02/08/2025 Guns Present In The Home? No Information not available 02/08/2025 Are You Able To Care For Yourself? Yes Information not available 02/08/2025 Are You Blind Or Do Yo Have Difficulty Seeing? No Information not available 02/08/2025 Are You Deaf Or Do You Have Serious Difficulty Hearing? No Information not available 02/08/2025 General Stress Level? Moderate Information not available 02/08/2025 Live Alone Of With Others? Alone Information not available 02/08/2025 What Was The Date Of Your Most Recent Tobacco Screening? 09/28/2023 Information not available 09/28/2023 How Many Children Do You Have? 2 Information not available 12/28/2024 Do You Have Any Pets? Yes Information not available 09/28/2024 What Is Your Relationship Status? Single Information not available 09/28/2024 Do You Use Your Seat Belt Or Car Seat Routinely? Yes Information not available 09/28/2024 Do You Have Smoke And Carbon Monoxide Detectors In Your Home? Yes Information not available 09/28/2024 Are You Passively Exposed To Smoke? No Information no t available 12/28/2024 Are There Any Smokers In Your House? No Information not available 12/28/2024 How Much Tobacco Do You Smoke? No [id number] Information not available 07/21/2022 Do You Participate In Social Media? Yes Information not available 09/28/2024 Do You Use Sunscreen Routinely? Yes Information not available 09/28/2024 Have You Recently Traveled Abroad? No Information not available 12/28/2024 Do You Have Difficulty Walking Or Climbing Stairs? No Information not available 12/28/2024 Are You Currently In School? No Information not available 09/28/2024 Sex: Unknown Functional Status Question Answer Note LastModified by Organizat ion Details LastModified Time What is your level of alcohol consumption? None Information not available 09/28/2024 Are you currently employed? Yes Information not available 09/28/2024 Do you have transportation difficulties? No Information not available 12/28/2024 Are you able to walk independently without assistance or assistive devices? YESWOREST Information not available 12/28/2024 Do you have difficulty doing errands alone? No Information not available 12/28/2024 Are you able to care for yourself independently? 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 No Information not available 12/28/2024 What is your exercise level? Moderate Information not available 09/28/2024 Mental Status Question Answer Note LastModified by Organizat ion Details LastModified Time Do you feel stressed (tense, restless, nervous, or anxious, or unable to sleep at night)? [id number] Information not available 09/28/2024 Do you have difficulty concentrating, remembering or making decisions? No Information no t available 12/28/2024 Family History Relationship Description Onset Age of this Age Resolved Age Notes LastModified by Organization Details LastModified Time Mother Primary malignant neoplasm of breast Not available 09/28 11:00:19 Mother Essential hypertension Not available 11:00:55 Sister Malignant neoplasm of breast Not available 09/28 11:00:33 Father Hypertensive disorder Not available 09/28 11:01:04 Maternal Grandmother Diabetes mellitus Not available 09/28 11:01:18 Medical History Condition Response BREAST PROBLEMS Y OBESITY Y DIABETES, TYPE Y CANCER: SPECIFY Y ANXIETY DISORDER Y TUBERCULOSIS Y Gynecological History Statement/Question Response Date of Last Pap Smear 02/08/2025 Date of Last Colonoscopy Most Recent Mammogram Most Recent Bone Density Obstetrics History GPAL:G 0 P 0 0 0 0 Immunizations Vaccine Type Date Status Note Provider Nam e and Address Organization Details Recorded Time Pneumococcal conjugate PCV20, polysaccharide PNU280 conjugate, adjuvant, PF 5 completed Jaylyn Gomez RN null, [facility] 12/28/2024 15:23:50 Influenza, split virus, quadrivalent, PF 3 completed Jaylyn Gomez RN null, [facility] 12/28/2024 14:12:57 influenza, unspecified formulation 3 completed Alina Portillo CMA null, [facility] [facility] 03/08/2023 15:43:49 Tdap 3 completed Jaylyn Gomez RN null, [facility] 12/28/2024 14:12:57 SARS-COV-2 (COVID-19) vaccine, UNSPECIFIED 1 completed Jaylyn Gomez RN null, [facility] 12/28/2024 14:12:57 SARS-COV-2 (COVID-19) vaccine, UNSPECIFIED 1 completed Jaylyn Gomez RN null, [facility] 12/28/2024 14:12:57 SARS-COV-2 (COVID-19) vaccine, UNSPECIFIED 2 completed Jaylyn Gomez RN null, [facility] 12/28/2024 14:12:57 SARS-COV-2 (COVID-19) vaccine, UNSPECIFIED 3 completed Jaylyn Gomez RN null, [facility] 12/28/2024 14:12:57 RSV, recombinant, protein subunit RSVpreF, adjuvant reconstituted, 0.5 mL, PF 3 completed Jaylyn Gomez RN null, [facility] 12/28/2024 14:12:57 Influenza, split virus, trivalent, PF 4 completed Marjorie Baird RN null, [facility] 01/24/2024 10:21:01 COVID-19, mRNA, LNP-S, bivalent, PF, 30 mcg/0.3 mL dose 2 completed Jaylyn Gomez RN null, [facility] 12/28/2024 14:12:57 Influenza, split virus, quadrivalent, preservative 2 completed Jaylyn Gomez RN null, [facility] 12/28/2024 14:12:57 COVID-19, mRNA, LNP-S, PF, 30 mcg/0.3 mL dose 1 completed Jaylyn Gomez RN null, [facility] 12/28/2024 14:12:57 Influenza, split virus, quadrivalent, preservative 1 completed Jaylyn Gomez RN null, [facility] 12/28/2024 14:12:57 Tdap 7 completed Not Available [facility] 07/21/2022 15:57:54 pneumococcal polysaccharide PPV23 7 completed Not Available [facility] 07/21/2022 15:57:54 Influenza, split virus, quadrivalent, preservative 6 completed Not Available [facility] 07/21/2022 15:57:55 Influenza, split virus, quadrivalent, PF 5 completed Not Available [facility] 07/21/2022 15:57:55 Influenza, split virus, trivalent, preservative 4 completed Jaylyn Gomez RN null, [facility] 12/28/2024 14:12:57 Past Encounters Encounter ID Performer Location Encounter Start Date Encounter Closed Date Diagnosis/Indication Diagnosis SNOMED-CT Code Diagnosis ICD10 Code Diagnosis IMO Codes Diagnosis Note [id number] Prieto Chavira MD [facility] [address] [place] [address] 10/16/2020 00:00:00 10/17/2020 06:31:48 [id number] Prieto Chvaira MD [facility] [address] [place] [address] 10/23/2020 00:00:00 10/23/2020 20:37:31 [id number] Prieto Chavira MD [facility] [address] [place] [address] 01/30/2021 00:00:00 01/30/2021 10:40:19 [id number] Prieto Chavira MD [facility] [address] [facility] [place] [address] 10/30/2021 00:00:00 10/31/2021 11:34:44 [id number] Prieto Chavira MD [facility] [address] [place] [address] 06/18/2022 00:00:00 06/18/2022 16:02:35 [id number] Prieot Chavira MD [facility] [address] [place] [address] 09/14/2022 13:53:08 09/14/2022 14:35:58 Adult health examination 199698101 Z00.00 Mammography abnormal 168 723434 R92.8 Type 2 romana betes mellitus without complication 103450344 E11.9 Will f/u in 3 months. [id number] Prieto Chavira MD [facility] [place] [address] [place] [address] 03/08/2023 15:36:43 03/08/2023 16:16:24 Type 2 diabetes mellitus without complication 360784758 E11.9 Will f/u in 3 months. Will increase to 1 mg of ozempic Abscess of skin and/or subcutaneous tissue 22478240 L02.91 Continue heat and PRID Multiple skin tags 83948 6440 L91.8 Removed approximat rosa 10 skin tags. [id number] Yohan Faria MD [facility] [address] [facility] [place] [address] 09/28/2023 09:13:00 09/28/2023 10:02:44 Adult health examination 785529413 Z00.00 Screening for disorder 954790248 Z13.9 Type 2 romana betes mellitus without complication 317047885 E11.9 Hyperlipidemia 58841410 E78.5 Screening for malignant neoplasm of breast 169679924 Z12.39 Screening for osteoporosis 625750822 Z13.820 Furuncle 953588629 L02.9 2 [id number] Yohan Faria MD [address] [address] 09/28/2024 10:46:31 11/07/2024 07:32:05 Diabetes mellitus 07641515 E11.9 Hyperlipidemia 92963433 E78.5 Obesity 199324123 E66.9 Cobalamin deficiency 190 984717 E53.8 Osteoporosis 06252344 M8 1.0 Adult heal th examination 998176572 Z00.00 [id number] Yohan Faria MD [address] [address] 12/28/2024 14:01:19 12/28/2024 15:54:01 Iron deficiency 12690057 E61.1 9881 On last labs, associated fatigue Type 2 romana betes mellitus without complication 244223958 E11.9 Taking Ozempic, gets from patient assistance programNot es that her weight has become steady. 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 related to double mastectomy and port scar Gynecologi c examination 23168738 Z01.419 Overall healthyDis cussed vaginal hygiene and safe sex practicesD iscussed monthly self breast examsPatie nt questions answered Health Concerns Section Related Observation LastModified by Organization Detai ls LastModified Time None Recorded Concern Status LastModified by Organization Details LastModified Time None Recorded Advance Directives Directive None Recorded Payers Insurance Date Sequence Insurance Name Policy Number Policy Garcia Covered Member ID Garcia Member ID Guarantor Name 10/04/2024 1 [place] Khloe Metzger [id number] [place] 10/04/2024 1 [place] [id number] Khloe Metzger [id number] [place] 10/04/2024 1 [employer] [facility] 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 Hit it and put drawing jordyn on it. Used PRID and has not gone away. It is noticeable through clothes. Prieto Chavira MD [address] [place], [address], [employer] 03/08/2023 22:12:43 09/28/2023 text/html ROS as noted in the HPI chronic cyst on right buttock for over a year , non tender. PREETI Ledezma [address], [place], [address], [employer] 10/16/2023 22:58:38 09/28/2024 text/html no changes PREETI Ledezma [address], [place], [address], [employer] 10/03/2024 14:20:38 12/28/2024 text/html Hans Metzger is a 69 year old female patient here today to establish care. She was previously under the care of Michael Sadler. Recent labs indicated A1C of 6.1, low vitamin D, and iron deficiency anemia. She is currently taking OTC B12, D, omega She has concerns with itching of HIRAM ears, this is chronic. Michael gave her some drops but this did not help. Type 2 diabetes mellitus. This is well controlled. Last A1C 6.1 on 10/14.They are currently taking OzempicPatient denies confusion, excessive urination and thirst, neuropathy, foot wounds. Flu shot: 4COVID vaccines: x6Tdap: 2022RSV: 3Pneumococcal: PPV23 2016, PCV20 2024Shingrix: completed per ptMammogram: does every 6 monthsPAP: dueColonoscopy DELL Booker [address], [place], [address], [employer] 12/28/2024 15:50:10 02/08/2025 text/html Pap/PelvicReport ed by PatientHPIFor context, patient reportsappt for screening pap/pelvic/breast examandno gynecologic complaints. For associated factors, patient reportsno risk factor for cervical cancer,no abnormal pap smears,at least three pap smears in past 7 years,low risk sexual history,no hesham exposure, andup to date mammogram.Hx of breast cancer - sees breast cancer specialist q 6 months Concerns with keloid port scar, has been utilizing hydroquinone and this is working well DELL Booker [address], [place], [address], [employer] 02/08/2025 13:03:37 OBGyn Episode No OBEpisode recorded.
--- OUTSIDE RECORDS SUMMARY | 2025-03-20 11:57 | XMS_ITS | Encounter Summary ---
Author Organization [facility] Address 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 [place], [place] [address] Admit Date: 08/28/2008 KHLOE METZGER Sex: F Admit Prov: CHUNG VANN II Date: 1955 Primary Care Prov: PCP, NONE CMRN: [id number] Room: [facility] SSN: [address] [place] [address] IMAGING SERVICES Ordering Prov: CHUNG VANN II [...] CREATININE POC 0.8 0.6 - 1.3 mg/dL [facility] Comment: The calculation for the estimated GFR on the i-STAT POC instrument has been changed to correspond to the IDMS-traceable MDRD Study, upon the recommendation of the linux devops engineer of the i-STAT instrument. The change was effective in our laboratory 04/29/2008. The impact of this change to the estimated GFR is minimal. This calculation is used by the main laboratory methodology also. GFR, >60 >=60 mL/min/1.7 sq meter [facility] GFR >60 >=60 mL/min/1.7 sq meter [facility] Capillary blood specimen (specimen) 08/28/2008 1:54 PM CDT 08/28/2008 1:54 PM CDT us Chung Vann MD POINT OF CARE TESTING Edited INTERFACE SYSTEM Refer to clinic/hospital department [facility] CLIA# [id number] [address] [place] [address] documented in this encounter Visit Diagnoses Diagnosis Malignant neoplasm of breast (female), unspecified site documented in this encounter
--- OUTSIDE RECORDS SUMMARY | 2025-03-20 11:57 | XMS_ITS | Encounter Summary ---
Author Organization [employer] Address 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 Gender Identity Not on file Sexual Orientation Not on file documented as of this encounter Plan of Treatment Not on file documented as of this encounter Procedures Procedure Name Priority Date/Time Associated Diagnosis Comments PATHOLOGY Routine 09/11/2008 5:00 PM CDT documented in this encounter Results * PATHOLOGY (09/11/2008 5:00 PM CDT) FINAL REPORT [address] [address] Patient: KHLOE METZGER : 1955 Procedure Date: 09/11/2008 Accession Date: 09/12/2008 Case No: [id number] Ordering Dr: LEXI MCNAIR Case types AW, BW, FW, NW and SH are performed by [facility] [place], [place], [place] SURGICAL PATHOLOGY & NON-GYNECOLOGIC CYTOPATHOLOGY REPORT [...] is submitted entirely in A1 through A4. [facility] 09.12.2008 10:39 am Microscopic: The slides are labeled [id number], Khloe Metzger. The biopsy consists of multiple cores of benign breast tissue. No significant proliferative changes, neoplastic infiltrate, or cyst is identified. Histologic features to explain the presence of a mass are not identified. Clinical correlation is recommended. [facility] 09.13.2008 08:55 am Staging Form: No. ELECTRONIC SIGNATURE FOR EMPERATRIZ HARVEY M.D.- 09/13/08 10:37 am INTERFACE SYSTEM 09/11/2008 5:00 PM CDT us Lexi Mcnair MD PATHOLOGY/CYTOLOGY ORDERABLES Final Result INTERFACE SYSTEM Refer to clinic/hospital department documented in this encounter Visit Diagnoses Not on filedocumented in this encounter
== END 2025-03-20 10:31 | disposition home or self-care (01) ==
PROVIDERS: PCP Physician Assistant
DX: R92.8 Other abnormal and inconclusive findings on diagnostic imaging of breast (principal)
CPT/HCPCS: 76642; 77061; 77065; G0279

== ENCOUNTER 2025-05-10 00:50 | Day surgery (SDC) | payer MEDICARE, SELFPAY ==
[2025-04-24 09:43] VITALS: BMI 32.3
[2025-05-10 08:17] VITALS: BP 175/68; PULSE 66; RESP 16; TEMP 36.2; O2SAT 100
[2025-05-10] MEDS: LACTATED RINGERS 1,000 ML 150 ML IV CONT (08:31)
--- NOTE | 2025-05-10 08:45 | P.PNAN_ITS ---
Anes - Initial Pre Proc Eval Procedure: Operation Date: 05/10/25 09:30 Proposed Procedures p Screening Colonoscopy - Declan Mario MD Date/Time: 05/10/25 08:45 Surgeon: Declan Mario MD Pre Op Diagnosis: Screening Patient Data Age: 69 Gender: F Height: 1.68 m Weight: 95.6 kg Last Vital Signs Temp 97.2 F L 05/10/25 08:17 Pulse 66 05/10/25 08:17 Resp 16 05/10/25 08:17 BP 175/68 H 05/10/25 08:17 Pulse Ox 100 05/10/25 08:17 O2 Del Method Room Air 05/10/25 08:17 Allergies Allergy/AdvReac Type Severity Reaction Status Date / Time morphine Allergy Unknown HALLUCINATI Verified 05/10/25 08:16 ONS Penicillins Allergy Unknown Hives Verified 05/10/25 08:16 Sulfa (Sulfonamide Allergy Unknown HIVES Verified 05/10/25 08:16 Antibiotics) Home Medications ?Medication ?Instructions ?Recorded ?Confirmed ?Type aspirin 81 mg tablet,delayed 81 mg PO DAILY 07/16/19 1 07/11/24 History release (Aspir-) semaglutide 1 mg/dose (4 mg/3 mL) 1 mg subcut WEEKLY 0 11/08/23 05/10/25 History subcutaneous pen injector (Ozempic) ergocalciferol (vitamin D2) 1,250 1,250 mcg PO WEEKLY 04/24/25 05/10/25 History mcg (50,000 unit) capsule ferrous sulfate 325 mg (65 mg 325 mg PO DAILY 04/24/25 05/10/25 History iron) tablet (FeroSul) omega 9-rqq-fyc-fish oil 1,000 mg 1 cap PO DAILY 04/2405/10/25 History (120 mg-180 mg) capsule (Fish Oil) Laboratory Tests 05/10/25 08:14 POC Capillary Glucose 107 H mg/dl (65-105) Patient hx anesthesia problems: none Family hx anesthesia problems: none Results Review: All pre-operative results and documents have been reviewed as part of the pre-operative evaluation. [facility] Past Medical History Medical History Breast cancer Obesity Ex-smoker Surgical History Surgical History History of lumpectomy Social History Social History Smoking status: Never smoker Alcohol intake: never Substance use: never Lack of Transportation: No Lack of Food: Never True Current Housing: I Have Housing Concerned About Future Housing: No Difficulty Paying Gas/Electric Bills: No Difficulty Paying for Meds: No Currently Unemployed: No Education: Bachelor's Degree Difficulty w/ Childcare or Family Care: No Gender identity (if verbalized by the patient): Female Anes - Eval Final PreProcedure Day of Procedure 05/10/25 08:45 Patient weight: obese Lungs: normal air movement Airway: Mallampati scale class II Neurological: alert and oriented Last oral intake: >/= 8 hours ASA classification: III Emergent: no Anesthetic plan: proceed Anesthesia type and monitoring: general GIVS and standard monitoring Results Review: All pre-operative results and documents have been reviewed as part of the pre- operative evaluation. BMI 34, ex smoker, GLP1 off 9 days, can walk 1-2 fos, no cp or sob. Informed Consent: The patient's anesthetic plan and its attendant risks and benefits were discussed with the patient/family/POA. Questions were solicited and answers provided to the satisfaction of the patient/family/POA.
--- NOTE | 2025-05-10 09:01 | PM.HPGS ---
History of Present Illness History of Present Illness Consent: Risks, benefits, and alternatives have been discussed and questions answered. Patient agrees to proceed with procedure. Chief complaint: Screening Narrative: Khloe Metzger is a 69 year old female here for colonoscopy, last one 5 years ago Review of Systems Review of Systems: All systems reviewed & are unremarkable except as noted in HPI and below PMFSH Past Medical History Medical History Colon cancer screening Breast cancer Obesity Ex-smoker Surgical History Surgical History History of lumpectomy Social History Social History Smoking status: Never smoker Alcohol intake: never Substance use: never Lack of Transportation: No Lack of Food: Never True Current Housing: I Have Housing Concerned About Future Housing: No Difficulty Paying Gas/Electric Bills: No Difficulty Paying for Meds: No Currently Unemployed: No Education: Bachelor's Degree Difficulty w/ Childcare or Family Care: No Gender identity (if verbalized by the patient): Female Meds Home Medications and Allergies Home Medications ?Medication ?Instructions ?Recorded ?Confirmed ?Type aspirin 81 mg tablet,delayed 81 mg PO DAILY 07/16/19 05/10/25 History release (Aspir-) semaglutide 1 mg/dose (4 mg/3 mL) 1 mg subcut WEEKLY 11/08/23 05/10/25 History subcutaneous pen injector (Ozempic) ergocalciferol (vitamin D2) 1,250 1,250 mcg PO WEEKLY 04/24/25 05/10/25 History mcg (50,000 unit) capsule ferrous sulfate 325 mg (65 mg 325 mg PO DAILY 04/24/25 05/10/25 History iron) tablet (FeroSul) omega 2-kwd-gwb-fish oil 1,000 mg 1 cap PO DAILY 04/24/25 05/10/25 History (120 mg-180 mg) capsule (Fish Oil) Allergies Allergy/AdvReac Type Severity Reaction Status Date / Time morphine Allergy Unknown HALLUCINATI Verified 05/10/25 08:16 ONS Penicillins Allergy Unknown Hives Verified 05/10/25 08:16 Sulfa (Sulfonamide Allergy Unknown HIVES Verified 05/10/25 08:16 Antibiotics) Vital Signs Vital Signs - 24 hr 05/10/25 08:17 Temperature 97.2 F L Pulse Rate 66 Respiratory Rate 16 Blood Pressure 175/68 H Pulse Oximetry 100 Oxygen Delivery Room Air Exam Const: General: comfortable and no acute distress HENMT: Face/Nose/Sinus: Normal nares present Eyes: General: appearance normal, both eyes and all related structures Neck: Neck: no JVD Resp: Auscultation: clear to auscultation bilaterally Cardio: Rate: regular rate Rhythm: regular rhythm GI: Inspection: non-distended GI Palp: Yes Soft to palpation Skin: General skin exam: normal color Psych: Mental Status: mental status grossly normal Assessment and Plan Assessment and plan (1) Colon cancer screening: Code(s): Z12.11 - Encounter for screening for malignant neoplasm of colon Status: Acute Assessment and Plan: colonoscopy
[2025-05-10 09:14] VITALS: BP 124/61; PULSE 64; RESP 18; O2SAT 97
[2025-05-10 09:24] VITALS: BP 128/65; PULSE 62; RESP 18; O2SAT 97
[2025-05-10 09:34] VITALS: BP 157/76; PULSE 66; RESP 18; O2SAT 100
== END 2025-05-10 09:43 | disposition home or self-care (01) ==
PROVIDERS: Visit Provider Internal Medicine Gastroenterology
PROC: 0DJD8ZZ Inspection of Lower Intestinal Tract, Via Natural or Artificial Opening Endoscopic (ICD-10-PCS; CPT 45378; principal; 2025-05-10 09:30)
DX: Z12.11 Encounter for screening for malignant neoplasm of colon (principal); K64.8 Other hemorrhoids; K57.30 Diverticulosis of large intestine without perforation or abscess without bleeding; E66.9 Obesity, unspecified; Z68.34 Body mass index [BMI] 34.0-34.9, adult; Z79.82 Long term (current) use of aspirin; Z79.85 Long-term (current) use of injectable non-insulin antidiabetic drugs; Z98.890 Other specified postprocedural states; Z87.891 Personal history of nicotine dependence; Z85.3 Personal history of malignant neoplasm of breast
CPT/HCPCS: G0105; 82948; J2003; J2704; J7120